=== PATIENT | female | born 1970 | race Caucasian/White ===

== ENCOUNTER 2020-02-21 11:10 | Emergency (ER) | payer MEDICAID, SELFPAY ==
[2020-02-21 11:38] VITALS: BP 123/81; PULSE 83; RESP 16; TEMP 36.5; O2SAT 95; BMI 25.7
--- NOTE | 2020-02-21 12:17 | CT_ITS ---
WS: [id number] CT ABDOMEN AND PELVIS WITH CONTRAST HISTORY: abd pain, mid abdominal pain. TECHNIQUE: Imaging performed of the abdomen and pelvis with IV contrast. Single phase imaging of the abdomen. Coronal and sagittal reformats are submitted. All CT scans at [facility] use at least one of these dose optimization techniques: automated exposure control; mA and/or kV adjustment per patient size (includes targeted exams where dose is matched to clinical indication); or iterativ e reconstruction. IV CONTRAST: Omnipaque 300; 95 mL IV. Oral contrast: No DLP: 655.36 mGy.cm COMPARISON: 04/05/2017 Lower thorax: Lung bases are clear. Heart is normal size. No hiatal hernia. Liver/biliary system: Normal size with no intrahepatic dilatation. Gallbladder: Prior cholecystectomy. Pancreas: Normal. Spleen: Normal. Adrenal glands: Normal. Right kidney: Normal. Left kidney: Normal. Aorta: Mild atherosclerosis with no aneurysm. Lymphadenopathy: None. Free fluid: None. GI tract: Moderate diffuse fecal retention. There are also numerous scattered diverticula throughout the colon. The appendix is not identified but there is no evidence for acute appendicitis. Abdominal wall: Postsurgical changes of hernia repair on the anterior abdominal wall. No abscess or a bnormal collection. Pelvis: Minimally distended urinary bladder. Prior hysterectomy. Prior tubal ligation. No adenopathy. Bones: Unremarkable. CT/CT abdomen pelvis w con* [id number] IMPRESSION: 1. No acute abdominal or pelvic abnormalities. 2. Moderate diffuse constipation. 3. Post surgical repair of the anterior abdominal wall with no complication. 4. Prior cholecystectomy and hysterectomy. 5. Scattered diverticula without acute diverticulitis.
[2020-02-21] MEDS: iohexol 300 mg/mL 100 mL Btl IV (12:37)
[2020-02-21 12:39] LABS: Basophils # 0.1 10^3/uL (0.0-0.1); Basophils % 1.3 %; Eosinophils # 0.2 10^3/uL (0.0-0.8); Eosinophils % 2.1 %; Hematocrit 41.3 % (37.0-47.0); Hemoglobin 13.7 g/dL (11.5-15.3); Lymphocytes # 2.4 10^3/uL (0.8-4.8); Lymphocytes % 32.7 %; Mean Corpuscular HGB Conc 33.2 g/dL (30.0-36.0); Mean Corpuscular Hemoglobin 31.1 pg (28.0-34.0); Mean Corpuscular Volume 93.9 fL (81-99); Mean Platelet Volume 9.5 fL (7.4-10.4); Monocytes # 0.4 10^3/uL (0.2-0.9); Monocytes % 5.8 %; Neutrophils # 4.29 10^3/uL (1.8-7.7); Neutrophils % 57.6 %; Nucleated Red Blood Cells % 0 %; Platelet Count 358 10^3/cmm (130-400); White Blood Count 7.5 10^3/uL (4.0-10.0)
[2020-02-21 13:01] VITALS: RESP 14
[2020-02-21] MEDS: sodium chloride 0.9% 1,000 ML 999 ML IV (13:01)
[2020-02-21] MEDS: ondansetron 2 mg/ML SDV 2 mL 4 MG IVP (13:01)
[2020-02-21] MEDS: morphine 4 mg/mL SDV 1 mL IVP (13:01)
[2020-02-21 13:03] LABS: Add Urine Microscopic? NO
[2020-02-21 13:07] LABS: Alanine Aminotransferase 17 U/L (0-33); Albumin Level 4.3 g/dL (3.5-5.2); Alkaline Phosphatase 105 IU/L (35-105); Anion Gap 11.8 (5-19); Aspartate Amino Transferase 26 U/L (0-32); Blood Urea Nitrogen 10 mg/dL (6-20); Carbon Dioxide 31 mmol/L (22-29); Chloride 101 mmol/L (98-107); Creatinine Clr Calc Pharmacy 79.7348; Glomerular Filtration Rate 75.9 mL/min (90-130); Glucose 125 mg/dL (65-115); Lipase 35 U/L (13-60); Osmolality Calculated 291 mOsm/kg (285-295); Potassium 3.8 mmol/L (3.5-5.1); Sodium 140 mmol/L (136-145); Total Bilirubin 0.3 mg/dL (0.15-1.2); Total Protein 7.3 g/dL (6.6-8.7)
[2020-02-21 13:11] LABS: HCG Qualitative Urine. Negative (Negative)
[2020-02-21 13:13] LABS: Bilirubin Urine Neg (Negative); Blood Urine Neg (Negative); Glucose Urine UA Norm (Normal); Ketones Urine Negative (Negative); Leukocyte Esterase Urine Negative (Negative); Nitrate Urine Negative (Negative); Protein Urine Neg (Negative); Sulfosalicylic Acid Urine Negative (Negative); Urine Appearance Clear (CLEAR); Urine Color Yellow (Yellow); Urobilinogen Urine Norm (Negative); pH Urine 8 (5-7)
--- NOTE | 2020-02-21 14:07 | W.ED.ABDPA2 ---
HPI - Abdominal Pain General: Chief Complaint: Abdominal Pain Stated Complaint: abdominal pain, nausea Time Seen by Provider: 02/21/20 11:45 History of Present Illness: HPI narrative: 49-year-old presents to the emergency room with 2 to 3 days of abdominal pain. She reports dyspareunia a week ago. She has had slight nausea but no vomiting or diarrhea she has been constipated. She denies any hematochezia melena hematemesis cough comes no dysuria urgency or frequency. She does get this intermittently MD elicited complaint: abdominal pain Pertinent past history: constipation Onset (ago): day(s) Pain Consistency: intermittent Location: Diffuse Severity: moderate Quality: cramping Radiation: none Migration to: no migration Exacerbating factors: nothing Relieving factors: nothing Associated Symptoms: Reports change in bowel habits, constipation, GI cramping, nausea and poor appetite; Denies anorexia, belching, bloating, change in stool character, chills, coffee ground emesis, diarrhea, dyspepsia, dysuria, excessive flatus, fever(s), heartburn, hematochezia, hematuria, hematemesis, fecal incontinence, loose stools, melena, syncope and vomiting Review of Systems Const: Denies: fever(s) or chills Card: Denies: syncope Resp: Denies: dyspnea, productive cough or non-productive cough GI: Reports: nausea, constipation, GI cramping and change in bowel habits; Denies: vomiting, hematemesis, coffee ground emesis, heartburn, diarrhea, bloating, belching, excessive flatus, fecal incontinence, change in stool character, hematochezia or melena : Denies: dysuria or hematuria Skin/Breast: Denies: rash or pruritus PFSH ED PFSH: Social History Smoking and tobacco status: never smoked Alcohol intake: never Physical Exam Const: COMMON NORMALS: no acute distress GENERAL APPEARANCE: cooperative and comfortable HENMT: COMMON NORMALS: normocephalic, atraumatic and hearing grossly normal bilaterally HEAD & SCALP: normocephalic and atraumatic Neck/C-Spine: COMMON NORMALS: no JVD Resp: COMMON NORMALS: normal respiratory effort, No retractions, No use of accessory muscles and clear to auscultation bilaterally AUSCULTATION: clear to auscultation bilaterally Cardio: COMMON NORMALS: no JVD, regular rate, regular rhythm and No murmurs present (Cardio) RATE: regular rate RHYTHM: regular rhythm GI: COMMON NORMALS: Soft to palpation and No hepatosplenomegaly present AUSCULTATION: Yes normoactive bowel sounds PALPATION: Yes Soft to palpation, No Tenderness to palpation present (GI), No Guarding due to palpation present (GI) and Yes No hepatosplenomegaly present Extremity: COMMON NORMALS: normal to inspection, capillary refill normal, no clubbing, cyanosis or edema, no calf tenderness and no pedal edema Skin: COMMON NORMALS: no rashes or lesions noted GENERAL SKIN EXAM: no rashes or lesions noted Course Vital Signs: Vital signs: Vital Signs Temperature 97.7 F 02/21/20 11:38 Pulse Rate 83 02/21/20 14:19 Respiratory Rate 18 02/21/20 14:19 Blood Pressure 120/83 02/21/20 14:19 Pulse Oximetry 96 02/21/20 14:19 MDM - Abdominal Pain MDM Narrative: Medical decision making narrative: Labs unremarkable. CT shows diffuse retention of stool otherwise no acute findings discharge patient home use mag citrate as needed recommend adding something such as Tanja-Colace or MiraLAX to prevent constipation in the future. Lab Data: Labs: Lab Results 02/21/20 02/21/20 02/21/20 Range/Units 12:30 12:30 12:55 WBC 7.5 (4.0-10.0) 10^3/ uL RBC 4.40 (4.1-5.3) 10^6/u L Hgb 13.7 (11.5-15.3) g/dL Hct 41.3 (37.0-47.0) % MCV 93.9 (81-99) fL MCH 31.1 (28.0-34.0) pg MCHC 33.2 (30.0-36.0) g/dL RDW 12.0 L (12.1-15.1) % Plt Count 358 (130-400) 10^3/c mm MPV 9.5 (7.4-10.4) fL Neut % (Auto) 57.6 % Lymph % (Auto) 32.7 % [place] % (Auto) 5.8 % Eos % (Auto) 2.1 % Baso % (Auto) 1.3 % Neut # (Auto) 4.29 (1.8-7.7) 10^3/u L Lymph # (Auto) 2.4 (0.8-4.8) 10^3/u L [place] # (Auto) 0.4 (0.2-0.9) 10^3/u L Eos # (Auto) 0.2 (0.0-0.8) 10^3/u L Baso # (Auto) 0.1 (0.0-0.1) 10^3/u L Nucleated RBC % (a uto) 0 % Nucleated RBCs # 0.0 /100WBC Sodium 140 (136-145) mmol/L Potassium 3.8 (3.5-5.1) mmol/L Chloride 101 (98-107) mmol/L Carbon Dioxide 31 H (22-29) mmol/L Anion Gap 11.8 (5-19) BUN 10 (6-20) mg/dL Creatinine 0.8 (0.5-0.9) mg/dL GFR Calculation 75.9 L (90-130) mL/min Glucose 125 H (65-115) mg/dL Calculated Osmolal ity 291 (285-295) mOsm/k g Calcium 10.0 (8.5-10.5) mg/dL Total Bilirubin 0.3 (0.15-1.2) mg/dL AST 26 (0-32) U/L ALT 17 (0-33) U/L Alkaline Phosphata se 105 (35-105) IU/L Total Protein 7.3 (6.6-8.7) g/dL Albumin 4.3 (3.5-5.2) g/dL Globulin 3.0 (1.3-4.6) g/dL Lipase 35 (13-60) U/L HCG, Qual Negative (Negative) Urine Color (Yellow) Urine Appearance (CLEAR) Urine pH (5-7) Ur Specific Gravit y (1.005-1.030) Urine Protein (Negative) Urine Glucose (UA) (Normal) Urine Ketones (Negative) Urine Blood (Negative) Urine Nitrate (Negative) Urine Bilirubin (Negative) Prot Sulfosalicyli c Acd (Negative) Urine Urobilinogen (Negative) mg/dL Ur Leukocyte Britney ase (Negative) 02/21/20 Range/Units 12:55 WBC (4.0-10.0) 10^3/ uL RBC (4.1-5.3) 10^6/u L Hgb (11.5-15.3) g/dL Hct (37.0-47.0) % MCV (81-99) fL MCH (28.0-34.0) pg MCHC (30.0-36.0) g/dL RDW (12.1-15.1) % Plt Count (130-400) 10^3/c mm MPV (7.4-10.4) fL Neut % (Auto) % Lymph % (Auto) % [place] % (Auto) % Eos % (Auto) % Baso % (Auto) % Neut # (Auto) (1.8-7.7) 10^3/u L Lymph # (Auto) (0.8-4.8) 10^3/u L [place] # (Auto) (0.2-0.9) 10^3/u L Eos # (Auto) (0.0-0.8) 10^3/u L Baso # (Auto) (0.0-0.1) 10^3/u L Nucleated RBC % (a uto) % Nucleated RBCs # /100WBC Sodium (136-145) mmol/L Potassium (3.5-5.1) mmol/L Chloride (98-107) mmol/L Carbon Dioxide (22-29) mmol/L Anion Gap (5-19) BUN (6-20) mg/dL Creatinine (0.5-0.9) mg/dL GFR Calculation (90-130) mL/min Glucose (65-115) mg/dL Calculated Osmolal ity (285-295) mOsm/k g Calcium (8.5-10.5) mg/dL Total Bilirubin (0.15-1.2) mg/dL AST (0-32) U/L ALT (0-33) U/L Alkaline Phosphata se (35-105) IU/L Total Protein (6.6-8.7) g/dL Albumin (3.5-5.2) g/dL Globulin (1.3-4.6) g/dL Lipase (13-60) U/L HCG, Qual (Negative) Urine Color Yellow (Yellow) Urine Appearance Clear (CLEAR) Urine pH 8 H (5-7) Ur Specific Gravit y 1.010 (1.005-1.030) Urine Protein Neg (Negative) Urine Glucose (UA) Norm (Normal) Urine Ketones Negative (Negative) Urine Blood Neg (Negative) Urine Nitrate Negative (Negative) Urine Bilirubin Neg (Negative) Prot Sulfosalicyli c Acd Negative (Negative) Urine Urobilinogen Norm (Negative) mg/dL Ur Leukocyte Britney ase Negative (Negative) Discharge Plan Discharge Patient Disposition: Home Clinical Impression: Constipation Condition: Stable Prescriptions: New magnesium citrate Solution 150 ml PO BID PRN (Reason: constipation) Qty: 296 RF: 0 Discharge Orders: Discharge Order (Routine); Ordered 02/21/20 Ordered By: Wagner Kasper Referrals: Benita Thomas DO [Family Provider] - Discharge Diet: Usual diet Discharge Activity: Resume usual activity and Increase activity as tolerated Activity Restrictions/Additional Instructions: Follow-up as needed return if worsens Discharge Date/Time: 02/21/20 14:20 Coding Level of Care Code ED Glaze Carrier for Lela Castillo
[2020-02-21 14:19] VITALS: BP 120/83; PULSE 83; RESP 18; O2SAT 96
== END 2020-02-21 14:20 | disposition home or self-care (01) ==
PROVIDERS: Nurse Practitioner Family; Emergency Provider Family Medicine; Family Provider Family Medicine
DX: K59.00 Constipation, unspecified (principal)
CPT/HCPCS: 12345; 74177; 80053; 81003; 81025; 83690; 85025; 96361; 96374; 96375; 99282; 99283; J2270; J2405; J7030; Q9967

== ENCOUNTER → 2021-04-02 12:07 | Outpatient (BNVA) | payer MEDICAID, SELFPAY | PROVIDERS: Family Provider Family Medicine; PCP Family Medicine; Visit Provider Registered Nurse Neonatal Intensive Care | DX: N39.0 Urinary tract infection, site not specified (principal); Z11.3 Encounter for screening for infections with a predominantly sexual mode of transmission | CPT/HCPCS: 81000; 87491; 87591; 87661 ==

== ENCOUNTER 2022-09-12 12:30 | Outpatient (CLI) | payer MEDICAID, SELFPAY ==
--- NOTE | 2022-09-12 13:07 | MM_ITS ---
WS: [id number] BILATERAL 3D TOMOSYNTHESIS DIGITAL SCREENING MAMMOGRAPHY WITH CAD CLINICAL INFORMATION: SCREENING HISTORY: Screening mammogram. No current complaints. COMPARISON: 2016 TECHNIQUE: Bilateral CC and MLO views. FINDINGS: The breasts are composed of heterogeneous fibroglandular density tissue, which can limit the detectio n of small underlying mass lesions. New clustered heterogeneous calcifications 6:00 LEFT breast. Stef mmend spot magnification views. RIGHT breast is unremarkable. MM/[place] [id number] IMPRESSION: Recommend spot magnification views clustered calcifications LEFT br east BI-RADS: 0-Incomplete: Need additional imaging evaluation FOLLOW UP: Need Additional Imaging
== END 2022-09-12 12:31 | disposition home or self-care (01) ==
PROVIDERS: PCP Family Medicine; Visit Provider Nurse Practitioner Family
DX: Z12.31 Encounter for screening mammogram for malignant neoplasm of breast (principal)
CPT/HCPCS: 77063; 77067

== ENCOUNTER 2022-09-20 10:00 | Outpatient (CLI) | payer MEDICAID, SELFPAY ==
--- NOTE | 2022-09-20 10:12 | MM_ITS ---
WS: [id number] LEFT 3D TOMOSYNTHESIS DIGITAL MAMMOGRAPHY WITH CAD CLINICAL INFORMATION: ABNORMALITY OF LEFT BREAST ON SCREENING HISTORY: Additional views COMPARISON: September 12, 2022 TECHNIQUE: 3 views of the left breast were obtained. FINDINGS: The left breast is composed of heterogeneous fibroglandular density tissue, which can limit the detec tion of small underlying mass lesions. Magnification views demonstrate heterogeneous clustered calcif ications 6:00 position LEFT breast mid to posterior depth. These are indeterminate and recommend furt her evaluation with stereotactic guided biopsy. MM/[place] [id number] IMPRESSION: BI-RADS: 4-Suspicious Finding-Biopsy Should Be Considered FOLLOW UP: Stereotactic Biopsy Recommended .
== END 2022-09-20 10:01 | disposition home or self-care (01) ==
LOC: RAD 10:08
PROVIDERS: PCP Family Medicine; Visit Provider Nurse Practitioner Family
DX: R92.8 Other abnormal and inconclusive findings on diagnostic imaging of breast (principal)
CPT/HCPCS: 77061; G0279

== ENCOUNTER 2022-10-02 14:00 | Emergency (ER) | payer MEDICAID, SELFPAY ==
[2022-10-02 14:39] VITALS: BP 111/72; PULSE 114; RESP 14; TEMP 37.6; O2SAT 95; BMI 29.2
[2022-10-02] MEDS: sodium chloride 0.9% 1,000 ML 999 ML IV ×2 (15:17→17:26)
[2022-10-02] MEDS: ondansetron 2 mg/ML SDV 2 mL 4 MG IVP (15:17)
[2022-10-02] MEDS: acetaminophen 500 mg Tablet 1000 MG PO (15:17)
[2022-10-02 15:32] LABS: Basophils # 0.1 10^3/uL (0.0-0.1); Basophils % 0.6 %; Eosinophils % 0.1 %; Hematocrit 44.4 % (37.0-47.0); Hemoglobin 14.7 g/dL (11.5-15.3); Lymphocytes # 1.5 10^3/uL (0.8-4.8); Lymphocytes % 6.9 %; Mean Corpuscular HGB Conc 33.1 g/dL (30.0-36.0); Mean Corpuscular Hemoglobin 30.5 pg (28.0-34.0); Mean Corpuscular Volume 92.1 fl (81-99); Mean Platelet Volume 9.7 fL (7.4-10.4); Monocytes % 4.7 %; Neutrophils # 19.12 10^3/uL (1.8-7.7); Neutrophils % 86.8 %; Nucleated Red Blood Cells % 0 %; Platelet Count 369 10^3/cmm (130-400); Red Blood Count 4.82 10^6/uL (4.1-5.3); Red Cell Distribution Width 12.8 % (12.1-15.1)
--- NOTE | 2022-10-02 15:35 | XRR_ITS ---
PROCEDURE INFORMATION: Exam: XR Chest Exam date and time: 10/02/2022 4:02 PM Age: 51 years old Clinical indication: Fever TECHNIQUE: Imaging protocol: Radiologic exam of the chest. Views: 1 view. COMPARISON: CT chest w con* [id number] 08/03/2018 8:41 AM FINDINGS: Lungs: Lung volumes are decreased. Lung [place] are essentially clear for degree of aeration. Pleural spaces: Unremarkable. No pleural effusion. No pneumothorax. Heart/Mediastinum: Heart appears borderline enlarged but accentuated due to decreased lung volumes and portable technique. Bones/joints: Unremarkable for age. XR/XR chest 1V portable [id number] IMPRESSION: Borderline cardiomegaly. Decreased lung volumes otherwise negative chest.
[2022-10-02 15:40] LABS: Rapid Strep A Test Negative (Negative)
[2022-10-02 15:48] LABS: Add Urine Culture? No; Add Urine Microscopic? YES; Bacteria Urine 1+ /hpf; Bilirubin Urine 1+ (Negative); Blood Urine Neg (Negative); Glucose Urine UA Norm (Normal); Ketones Urine Negative (Negative); Leukocyte Esterase Urine Negative (Negative); Nitrate Urine Negative (Negative); Protein Urine Trace (Negative); Urine Appearance Clear (CLEAR); Urine Color Dark Yellow (Yellow); Urobilinogen Urine Norm (Negative); WBC Urine 0-4 /hpf (0-5); pH Urine 5 (5-7)
[2022-10-02 15:52] LABS: Alanine Aminotransferase 28 U/L (0-33); Albumin Level 4.5 g/dL (3.5-5.2); Alkaline Phosphatase 146 U/L (35-105); Anion Gap 17.6 (5-19); Aspartate Amino Transferase 21 U/L (0-32); Blood Urea Nitrogen 14 mg/dL (6-20); Calcium 9.8 mg/dL (8.5-10.5); Carbon Dioxide 24 mmol/L (22-29); Chloride 99 mmol/L (98-107); Globulin 3.9 g/dL (1.3-4.6); Glomerular Filtration Rate 58.2 mL/min (90-130); Glucose 134 mg/dL (65-115); Lipase 24 U/L (13-60); Osmolality Calculated 286 mOsm/kg (285-295); Potassium 3.6 mmol/L (3.5-5.1); Sodium 137 mmol/L (136-145); Total Bilirubin 0.9 mg/dL (0.15-1.2); Total Protein 8.4 g/dL (6.6-8.7)
--- NOTE | 2022-10-02 15:55 | CTR_ITS ---
PROCEDURE INFORMATION: Exam: CT Abdomen And Pelvis With Contrast Exam date and time: 10/02/2022 4:27 PM Age: 51 years old Clinical indication: Abdominal tenderness and fever; Prior surgery; Surgery date: 6+ months; Surgery type: Hernia; Additional info: Abd pain TECHNIQUE: Imaging protocol: Computed tomography of the abdomen and pelvis with contrast. Radiation optimization: All CT scans at this facility use at least one of these dose optimization techniques: automated exposure control; mA and/or kV adjustment per patient size (includes targeted exams where dose is matched to clinical indication); or iterative reconstruction. Contrast material: OMNI 350; Contrast volume: 100 ml; Contrast route: INTRAVENOUS (IV); REPORTING DATA: Count of CT and Cardiac NM exams in prior 12 months: This patient has received 0 known CTs and 0 known cardiac nuclear medicine studies in the 12 months prior to the current study. COMPARISON: CT abdomen pelvis w con* [id number] 02/21/2020 12:32 PM RADIATION DOSE METRICS: Total DLP (mGy-cm): 660.91 FINDINGS: Lungs: Stable small fat containing left diaphragmatic hernia with adjacent minor atelectatic changes. Additional scattered linear atelectasis and hypoventilatory changes at the lung bases progressed from previous exam. Liver: Liver is mildly enlarged with fatty infiltration. Gallbladder and bile ducts: Gallbladder has been removed. Bile ducts are not appreciably dilated. Pancreas: Unremarkable. Main pancreatic duct is not significantly dilated. Spleen: Normal. No splenomegaly. Adrenal glands: Normal. No mass. Kidneys and ureters: Normal. No hydronephrosis. Stomach and bowel: There is a segment of colon extending from the a patent flexure to the midportion of the transverse colon that is collapsed, unopacified limiting assessment but appears mildly thickened with engorgement of adjacent pericolonic vasculature concerning for mild segmental colitis. There are scattered diverticuli throughout the large bowel without evidence of acute diverticulitis. Appendix: No evidence of appendicitis. Intraperitoneal space: Unremarkable. No free air. No significant fluid collection. Vasculature: Unremarkable. No abdominal aortic aneurysm. Lymph nodes: Unremarkable. No enlarged lymph nodes. Urinary bladder: Unremarkable as visualized. Reproductive: Uterus has been removed. Bones/joints: Unremarkable. No acute fracture. Soft tissues: Unremarkable. CT/CT abdomen pelvis w con* [id number] IMPRESSION: 1. Findings suspicious for mild segmental colitis involving portion of the right colon as discussed above. 2. Additional chronic findings as above.
[2022-10-02 16:10] LABS: SARS Covid-2 Antigen negative (Negative)
[2022-10-02] MEDS: iohexol 350 mg/mL 500 mL Btl (per mL) IV (16:33)
--- NOTE | 2022-10-02 16:57 | W.ED.NAVMDI ---
HPI - Nausea/Vomiting/Diarrhea General: Chief complaint: Nausea/Vomiting/Diarrhea Stated complaint: Sore throat, Cold chills, Time Seen by Provider: 10/02/22 14:07 Source: patient Mode of arrival: ambulatory Limitations: no limitations History of Present Illness: 51-year-old female states that since last night she had chills body aches subjective fevers along with a sore throat. States she also had some abdominal cramping she rates a 4 out of 10. Mild cough. She denies any worsening improving factors no vomiting no diarrhea denies any headache. Associated nausea: No Associated symtoms: Denies chest pain, dysuria or nausea Review of Systems Const: Reports: fever(s) and chills; Denies: body aches or change in appetite Eyes: Denies: blurry vision or eye discomfort ENMT: Reports: throat pain; Denies: dental pain Card: Denies: chest pain Resp: Denies: dyspnea GI: Reports: abdominal pain; Denies: nausea, vomiting or diarrhea : Denies: dysuria Musc: Denies: neck pain or back pain Skin/Breast: Denies: rash PFSH ED PFSH: Social History Smoking and tobacco status: never smoked Alcohol intake: never Substance/Drug Use: never Physical Exam Const: COMMON NORMALS: no acute distress and patient oriented x3 HENMT: COMMON NORMALS: normocephalic and atraumatic HEAD & SCALP: normocephalic and atraumatic THROAT: posterior oropharynx normal Eye: COMMON NORMALS: EOMs intact bilaterally and conjunctivae normal CONJUNCTIVA: Yes conjunctivae normal Neck/C-Spine: COMMON NORMALS: supple Chest: COMMONS NORMALS: normal inspection of the chest Resp: COMMON NORMALS: normal respiratory effort and No retractions Cardio: COMMON NORMALS: regular rhythm RATE: tachycardic RHYTHM: regular rhythm GI: COMMON NORMALS: Normal to inspection, nondistended, normoactive bowel sounds present and Soft to palpation PALPATION: Yes Soft to palpation Extremity: COMMON NORMALS: normal to inspection Neuro: COMMON NORMALS: patient oriented x3 Psych: COMMON NORMALS: mental status grossly normal Skin: COMMON NORMALS: no rashes or lesions noted GENERAL SKIN EXAM: no rashes or lesions noted Course Vital Signs: Vital signs: Vital Signs Temperature 99.7 F H 10/02/22 14:39 Pulse Rate 114 H 10/02/22 14:39 Respiratory Rate 14 10/02/22 14:39 Blood Pressure 111/72 10/02/22 14:39 Pulse Oximetry 95 10/02/22 14:39 Oxygen Delivery Me thod Room Air 10/02/22 14:39 MDM - Nausea/Vomiting/Diarrhea Medical Decision Making Patient presents with fever along with some slight abdominal pain she feels much improved here after IV fluids she is wanting to go home CT did show a slight colitis she does have an elevated white count. Heart rate here is improved after fluids we will give her Cipro Flagyl prescription for home along with Zofran CT showed no other findings she stable for discharge. Lab Data 10/02/22 15:24 10/02/22 15:24 Radiology Impressions Chest X-Ray 10/02/22 15:35 IMPRESSION: Borderline cardiomegaly. Decreased lung volumes otherwise negative chest. Abdomen/Pelvis CT 10/02/22 15:55 IMPRESSION: 1. Findings suspicious for mild segmental colitis involving portion of the right colon as discussed above. 2. Additional chronic findings as above. Laboratory Results WBC 22.0 10^3/uL (4.0-10.0) H 10/02/22 15:24 RBC 4.82 10^6/uL (4.1-5.3) 10/02/22 15:24 Hgb 14.7 g/dL (11.5-15.3) 10/02/22 15:24 Hct 44.4 % (37.0-47.0) 10/02/22 15:24 MCV 92.1 fl (81-99) 10/02/22 15:24 MCH 30.5 pg (28.0-34.0) 10/02/22 15:24 MCHC 33.1 g/dL (30.0-36.0) 10/02/22 15:24 RDW 12.8 % (12.1-15.1) 10/02/22 15:24 Plt Count 369 10^3/cmm (130-400) 10/02/22 15:24 MPV 9.7 fL (7.4-10.4) 10/02/22 15:24 Neut % (Auto) 86.8 % 10/02/22 15:24 Lymph % (Auto) 6.9 % 10/02/22 15:24 [place] % (Auto) 4.7 % 10/02/22 15:24 Eos % (Auto) 0.1 % 10/02/22 15:24 Baso % (Auto) 0.6 % 10/02/22 15:24 Neut # (Auto) 19.12 10^3/uL (1.8-7.7) H 10/02/22 15:24 Lymph # (Auto) 1.5 10^3/uL (0.8-4.8) 10/02/22 15:24 [place] # (Auto) 1.0 10^3/uL (0.2-0.9) H 10/02/22 15:24 Eos # (Auto) 0.0 10^3/uL (0.0-0.8) 10/02/22 15:24 Baso # (Auto) 0.1 10^3/uL (0.0-0.1) 10/02/22 15:24 Nucleated RBC % (auto) 0 % 10/02/22 15:24 Nucleated RBCs # 0.0 /100WBC 10/02/22 15:24 Sodium 137 mmol/L (136-145) 10/02/22 15:24 Potassium 3.6 mmol/L (3.5-5.1) 10/02/22 15:24 Chloride 99 mmol/L (98-107) 10/02/22 15:24 Carbon Dioxide 24 mmol/L (22-29) 10/02/22 15:24 Anion Gap 17.6 (5-19) 10/02/22 15:24 BUN 14 mg/dL (6-20) 10/02/22 15:24 Creatinine 1.0 mg/dL (0.5-0.9) H 10/02/22 15:24 GFR Calculation 58.2 mL/min (90-130) L 10/02/22 15:24 Glucose 134 mg/dL (65-115) H 10/02/22 15:24 Calculated Osmolality 286 mOsm/kg (285-295) 10/02/22 15:24 Calcium 9.8 mg/dL (8.5-10.5) 10/02/22 15:24 Total Bilirubin 0.9 mg/dL (0.15-1.2) 10/02/22 15:24 AST 21 U/L (0-32) 10/02/22 15:24 ALT 28 U/L (0-33) 10/02/22 15:24 Alkaline Phosphatase 146 U/L (35-105) H 10/02/22 15:24 Total Protein 8.4 g/dL (6.6-8.7) 10/02/22 15:24 Albumin 4.5 g/dL (3.5-5.2) 10/02/22 15:24 Globulin 3.9 g/dL (1.3-4.6) 10/02/22 15:24 Lipase 24 U/L (13-60) 10/02/22 15:24 Urine Color Dark yellow (Yellow) 10/02/22 15:05 Urine Appearance Clear (CLEAR) 10/02/22 15:05 Urine pH 5 (5-7) 10/02/22 15:05 Ur Specific [place] 1.020 (1.005-1.030) 10/02/22 15:05 Urine Protein Trace (Negative) 10/02/22 15:05 Urine Glucose (UA) Norm (Normal) 10/02/22 15:05 Urine Ketones Negative (Negative) 10/02/22 15:05 Urine Blood Neg (Negative) 10/02/22 15:05 Urine Nitrate Negative (Negative) 10/02/22 15:05 Urine Bilirubin 1+ (Negative) H 10/02/22 15:05 Urine Urobilinogen Norm mg/dL (Negative) 10/02/22 15:05 Ur Leukocyte Esterase Negative (Negative) 10/02/22 15:05 Urine RBC None /hpf (0-2) 10/02/22 15:05 Urine WBC 0-4 /hpf (0-5) H 10/02/22 15:05 Ur Squamous Epith Cells 10-15 /hpf (0-5) H 10/02/22 15:05 Amorphous Sediment Not Reportable 10/02/22 15:05 Urine Bacteria 1+ /hpf (NONE) H 10/02/22 15:05 SARS-CoV-2 Ag (Rapid) negative (Negative) 10/02/22 15:24 Group A Strep Rapid Negative (Negative) 10/02/22 15:24 Discharge Plan Discharge Patient Disposition: Home Clinical Impression: Colitis Condition: Stable Prescriptions: New metronidazole 500 mg tablet 500 mg PO Q8H 7 Days Qty: 21 0RF Cipro 500 mg tablet 500 mg PO BID Qty: 14 0RF No Action unable to obtain PO nitrofurantoin monohyd/m-cryst [Macrobid] 100 mg capsule 100 mg PO BID 5 Days Qty: 10 0RF Rx Instructions: must administer with a meal/food Discharge Orders: Discharge ED (Routine); Ordered 10/02/22 Ordered By: Anneliese Banuelos Referrals: Benita Thomas DO [Primary Care Provider] - 1-3 days Discharge Diet: Advance as tolerated Discharge Activity: Resume usual activity Patient Instructions: Colitis (ED) Coding Level of Care Code ED Prosthetic Technician for Lela Castillo
[2022-10-02] MEDS: metroNIDAZOLE 500 MG Tablet PO (17:25)
[2022-10-02] MEDS: ciprofloxacin 500 mg Tablet PO (17:25)
== END 2022-10-02 18:22 | disposition home or self-care (01) ==
PROVIDERS: Emergency Provider Emergency Medicine; PCP Family Medicine
DX: K52.9 Noninfective gastroenteritis and colitis, unspecified (principal); Z20.822 Contact with and (suspected) exposure to COVID-19
CPT/HCPCS: 71045; 74177; 80053; 81001; 83605; 83690; 85025; 87081; 87426; 87880; 96361; 96374; 99285; J2405; J7030; Q9967

== ENCOUNTER 2023-08-14 11:31 | Emergency (ER) | payer MEDICAID, SELFPAY ==
[2023-08-14 11:36] VITALS: BP 132/87; PULSE 100; RESP 16; TEMP 36.6; O2SAT 97; BMI 23.1
--- NOTE | 2023-08-14 11:51 | W.ED.SKABFB ---
HPI - Skin/Abscess/Foreign Bdy General: Chief complaint: Skin/Abscess/Foreign Body Stated complaint: tick bit, redness, unable to have bowel movement Time Seen by Provider: 08/14/23 11:40 Source: patient Mode of arrival: ambulatory Limitations: no limitations History of Present Illness: Patient is a 52-year-old female presents to ED today with two separate complaints. Yesterday she began noticing some pruritus around her umbilicus. She states she inspected the area and noticed redness and an attached tick. She states she pulled the tick off and flushed it down the toilet. Redness is worse today prompting her evaluation. No systemic symptoms. She also has a complaint of constipation. Reports longstanding history of constipation that she normally treats with OTC laxatives and stool softeners. Still passing gas. No vomiting or fevers. MD complaint: insect bite/sting and other (constipation) Onset (ago): day(s) Tetanus up to date: yes Location: generalized (abdomen) Severity: mild Relieving factors: none Exacerbating factors: none Context: witnessed insect bite (tick) Associated symptoms: Deny chills, fever(s), nausea or vomiting Treatments prior to arrival: other (otc laxatives) Review of Systems Const: Denies: fever(s), chills, body aches, fatigue or malaise Card: Denies: chest pain Resp: Denies: dyspnea GI: Reports: constipation and bloating; Denies: abdominal pain, nausea, vomiting, hematemesis, diarrhea, hematochezia or melena : Denies: flank pain, dysuria or hematuria Musc: Denies: neck pain, back pain, extremity pain or joint pain Skin/Breast: Reports: other (redness/tick bite near umbilicus); Denies: rash Neuro: Denies: headache(s), numbness in extremities, weakness in extremities, sensory changes or dizziness PFS ED PFSH: Social History Smoking and tobacco/nicotine status: never used tobacco/nicotine Alcohol intake: never Substance/Drug Use: never Physical Exam Const: COMMON NORMALS: no acute distress, patient oriented x3, no limitations, alert and well nourished Resp: COMMON NORMALS: normal respiratory effort and clear to auscultation bilaterally AUSCULTATION: clear to auscultation bilaterally Cardio: COMMON NORMALS: regular rate and regular rhythm RATE: regular rate RHYTHM: regular rhythm GI: COMMON NORMALS: Soft to palpation INSPECTION: Yes scar and Yes other (redness surrounding umbilicus) AUSCULTATION: Yes normoactive bowel sounds PALPATION: Yes Soft to palpation, No Tenderness to palpation present (GI), No Guarding due to palpation present (GI) and No Rigid due to palpation : COMMON NORMALS: Yes no CVA tenderness BLADDER/KIDNEY EXAM: Yes no CVA tenderness Back/Pelvis: COMMON NORMALS: no CVA tenderness Extremity: GENERAL: Yes normal exam except as noted Neuro: MONIKA COMA SCALE: document GCS findings [place] coma scale eye opening: Spontaneous [place] coma scale verbal response: Orientated [place] coma scale motor response: Obey commands Monika coma scale total score: 15 COMMON NORMALS: patient oriented x3, moves all extremities, no focal motor deficits and no sensory deficits noted SENSORIUM/ORIENTATION: Yes alert Skin: NARRATIVE SKIN EXAM: see above Course Vital Signs: Vital signs: Vital Signs Temperature 97.8 F 08/14/23 11:36 Pulse Rate 100 08/14/23 11:36 Respiratory Rate 16 08/14/23 11:36 Blood Pressure 132/87 08/14/23 11:36 Pulse Oximetry 97 08/14/23 11:36 Oxygen Delivery Me thod Room Air 08/14/23 11:36 MDM - Skin/Abscess/Foreign Bdy Medicial Decision Making No signs of obstruction on patient's abdominal XR. She does have quite a bit of erythema surrounding her umbilicus from recent tick bite. Will go ahead and run a tick panel as patient is concerned. Will place her on Doxycycline. Return ED precautions given. Medical Records I reviewed the patient's medical records. XR interpretation done by ED provider, pending radiology final review Discharge Plan Discharge Patient Disposition: Home Clinical Impression: Tick bite of abdomen Qualifiers: Encounter type: initial encounter Qualified Code(s): S30.861A - Insect bite (nonvenomous) of abdominal wall, initial encounter Constipation Qualifiers: Constipation type: unspecified constipation type Qualified Code(s): K59.00 - Constipation, unspecified Condition: Stable Prescriptions: New doxycycline monohydrate 100 mg capsule 100 mg PO Q12H 10 Days Qty: 20 0RF No Action cetirizine 10 mg tablet 10 mg PO DAILY pravastatin 40 mg tablet 40 mg PO QPM ibuprofen 800 mg tablet 800 mg PO Q6H PRN (Reason: Moderate Pain (Scale Score 5-6)) ondansetron HCl 4 mg tablet 4 mg PO Q8H PRN (Reason: Nausea) omeprazole 40 mg capsule,delayed release(DR/EC) 40 mg PO DAILY docusate sodium 100 mg capsule 100 mg PO BID PRN (Reason: Constipation) Tums 500 500 mg calcium (1,250 mg) Tablet,Chewable 500 mg PO TID PRN (Reason: Acid Reflux) acai tabor extract 500 mg Capsule 500 mg PO DAILY Discharge Orders: Discharge ED (Routine); Ordered 08/14/23 Ordered By: Rosalind Cullen Referrals: Benita Thomas DO [Primary Care Provider] - Patient Instructions: Constipation (DC), Tick Bite (ED) Activity Restrictions/Additional Instructions: Antibiotics for your tick bite have been sent to [facility] pharmacy. Monitor for worsening redness, drainage, increased pain, or fevers. Tick panel collected and pending. You will be contacted with any positive results. As we discussed I would recommend attempting [id number] enema/suppository to help with your constipation in addition to MiraLAX/Colace/Senokot/increasing fiber content. Coding Level of Care Code ED Elevator Repairer Helper for Lela Castillo
--- NOTE | 2023-08-14 12:14 | XRR_ITS ---
PROCEDURE INFORMATION: Exam: XR Abdomen Exam date and time: 08/14/2023 12:42 PM Age: 52 years old Clinical indication: Other: Constipation, upright/supine; Prior surgery; Surgery date: 6+ months; Surgery type: Herniasex TECHNIQUE: Imaging protocol: Radiologic exam of the abdomen. Views: 2 Views. Upright and supine views. COMPARISON: CT abdomen pelvis w con* [id number] 10/02/2022 4:27 PM FINDINGS: Tubes, catheters and devices: Surgical clips project over the right upper quadrant. Gastrointestinal tract: Moderate colonic stool burden. Overall nonobstructive bowel gas pattern. Intraperitoneal space: No distinct evidence of extraluminal free air under the diaphragm. Bones/joints: No acute osseous findings. XR/XR abdomen min 2V [id number] IMPRESSION: Moderate colonic stool burden.
[2023-08-14 13:39] VITALS: BP 118/80; PULSE 92; O2SAT 92
[2023-08-15 12:14] LABS: Lyme AB Screen <0.90 index
[2023-08-17 16:58] LABS: RMSF IGG NOT DETECTED; RMSF IGM NOT DETECTED
[2023-08-19 21:25] LABS: E. Chaffeensis AB IGG <1:64; E. Chaffeensis AB IGM <1:20
== END 2023-08-14 13:40 | disposition home or self-care (01) ==
PROVIDERS: Emergency Provider Physician Assistant; PCP Family Medicine
DX: S30.861A Insect bite (nonvenomous) of abdominal wall, initial encounter (principal); K59.00 Constipation, unspecified; W57.XXXA Bitten or stung by nonvenomous insect and other nonvenomous arthropods, initial encounter
CPT/HCPCS: 74019; 86618; 86666; 86757; 99284

== ENCOUNTER 2023-10-18 17:05 | Emergency (ER) | payer MEDICAID, SELFPAY ==
[2023-10-18 17:06] VITALS: BP 129/87; PULSE 94; RESP 14; TEMP 36.7; O2SAT 98
--- NOTE | 2023-10-18 17:27 | CTR_ITS ---
PROCEDURE INFORMATION: Exam: CT Abdomen And Pelvis With Contrast Exam date and time: 10/18/2023 5:49 PM Age: 52 years old Clinical indication: Constipation and nausea; Abdominal pain; Generalized; Patient HX: PT reports abd cramping, nauseated, states she is constipated. Last bm sund; Additional info: Abd pain TECHNIQUE: Imaging protocol: Computed tomography of the abdomen and pelvis with contrast. Axial, coronal and sagittal reformatted images were created and reviewed. Radiation optimization: All CT scans at this facility use at least one of these dose optimization techniques: automated exposure control; mA and/or kV adjustment per patient size (includes targeted exams where dose is matched to clinical indication); or iterative reconstruction. Contrast material: OMNI 350; Contrast volume: 100 ml; Contrast route: INTRAVENOUS (IV); COMPARISON: CT abdomen pelvis w con* [id number] 10/02/2022 4:27 PM RADIATION DOSE METRICS: Total DLP (mGy-cm): 714.67 FINDINGS: Lungs: Dependent linear stranding and groundglass, likely due to atelectasis and/or scarring. Liver: Diffuse hepatic steatosis. Gallbladder and bile ducts: Status post cholecystectomy. No biliary ductal dilatation. Pancreas: Unremarkable. Spleen: Unremarkable. Adrenal glands: Normal. No mass. Kidneys and ureters: No mass. No radiodense calculi. No hydronephrosis. Stomach and bowel: Moderate amount of retained stool in the colon. Mild left colonic wall thickening with associated mural and pericolonic edema. No obstruction. No pneumatosis. Appendix: Normal. Intraperitoneal space: No free fluid. No organized fluid collection. No free air. Vasculature: Mild atherosclerotic disease. No aneurysm or dissection. Lymph nodes: No pathologically enlarged lymph nodes. Urinary bladder: Unremarkable as visualized. Reproductive: Status post hysterectomy. Bones/joints: No acute osseous abnormality. Soft tissues: Unremarkable. CT/CT abdomen pelvis w con* [id number] IMPRESSION: 1. Nonspecific left-sided colitis, as described above. Query stercoral colitis. 2. Additional findings, as above.
--- NOTE | 2023-10-18 17:28 | ED_ITS ---
HPI - Abdominal Pain 2 General: Chief Complaint: Abdominal Pain Stated Complaint: constipation, stomach pain, Time Seen by Provider: 10/18/23 17:22 History of Present Illness: 52-year-old female comes in today with a bdominal pain with nausea and vomiting since Monday. Patient reports her last bowel movement was Monday. Patient believes her symptoms are secondary to constipation. Patient has a history of hysterectomy and hernia repair. Patient's been on medication for urinary tract infection. Patient's routine medications includes medication for allergies. Patient appears nontoxic. Patient appears in mild pain. Patient reports nausea. Associated Symptoms: Reports constipation, nausea and vomiting Review of Systems 2 General: Reports: 10 or more systems reviewed and unremarkable except in HPI and below GI: Reports: abdominal pain, nausea, vomiting and constipation PFSH ED 2 PFSH: Social History Smoking and tobacco/nicotine status: never used tobacco/nicotine Alcohol intake: never Substance/Drug Use: never Physical Exam 2 Const: COMMON NORMALS: alert HENMT: COMMON NORMALS: normocephalic HEAD & SCALP: normocephalic Neck/C-Spine: COMMON NORMALS: full ROM Resp: COMMON NORMALS: normal respiratory effort and clear to auscultation bilaterally AUSCULTATION: clear to auscultation bilaterally Cardio: COMMON NORMALS: regular rate and regular rhythm RATE: regular rate RHYTHM: regular rhythm GI: COMMON NORMALS: Soft to palpation AUSCULTATION: Yes Hypoactive bowel sounds present PALPATION: Yes Soft to palpation and Yes Tenderness to palpation present (GI) : COMMON NORMALS: Yes no CVA tenderness BLADDER/KIDNEY EXAM: Yes no CVA tenderness Back/Pelvis: COMMON NORMALS: no CVA tenderness and thoracic and lumbar spine normal to inspection Extremity: COMMON NORMALS: normal to inspection Neuro: SENSORIUM/ORIENTATION: Yes alert Skin: COMMON NORMALS: turgor normal GENERAL SKIN EXAM: turgor normal Course 2 Vital Signs: Vital signs: Vital Signs Temperature 98.1 F 10/18/23 17:06 Pulse Rate 90 10/18/23 18:23 Respiratory Rate 16 10/18/23 18:23 Blood Pressure 125/81 10/18/23 18:23 Pulse Oximetry 93 10/18/23 18:23 Oxygen Delivery Me thod Room Air 10/18/23 17:06 MDM - Abdominal Pain Medical Decision Making 52-year-old female comes in today for complaints of generalized abdominal pain, constipation, and nausea with some vomiting. Patient appears nontoxic. Patient appears no acute distress. Respirations are even. Abdomen soft with generalized tenderness to palpation. No CVA tenderness. Patient moves all extremities well. Differential diagnosis includes not limited to constipation, bowel obstruction, gastroenteritis, Diverticulitis, pancreatitis. CBC and CMP was unremarkable with a normal white blood cell count, and mild increase in creatinine of 1.0. CT of the abdomen pelvis noted a nonspecific left-sided colitis with the differential being stercoral colitis. I reviewed this with Dr. Salgado, attending ER physician, who agreed with plan for enemas and mag citrate for resolution of constipation. Patient was nontoxic and did not note any signs of severe illness. Patient was agreeable to plan. 2224, patient had small results of stool after milk of molasses enemas. Patient was ordered a a magnesium citrate 10 ounce bottle and recommended to drink it when she got home. Patient was recommended repeat given 12 hours if needed. Recommended plenty of fluids and follow-up with primary care. Lab Data 10/18/23 17:30 10/18/23 17:30 Labs/Radiology: Radiology Impressions Abdomen/Pelvis CT 10/18/23 17:27 IMPRESSION: 1. Nonspecific left-sided colitis, as described above. Query stercoral colitis. 2. Additional findings, as above. Laboratory Results WBC 10.25 10^3/uL (3.29-11.43) 10/18/23 17:30 RBC 5.06 10^6/uL (3.85-5.65) 10/18/23 17:30 Hgb 15.30 g/dL (11.27-16.99) 10/18/23 17:30 Hct 45.2 % (36-47) 10/18/23 17:30 MCV 89.3 fl (85-98) 10/18/23 17:30 MCH 30.2 pg (27-33) 10/18/23 17:30 MCHC 33.8 g/dL (30-55) 10/18/23 17:30 RDW 12.5 % (12.1-15.1) 10/18/23 17:30 Plt Count 364 10^3/cmm (157-399) 10/18/23 17:30 MPV 9.8 fL (7.4-10.4) 10/18/23 17:30 Neut % (Auto) 77.6 % 10/18/23 17:30 Lymph % (Auto) 15.1 % 10/18/23 17:30 [place] % (Auto) 5.6 % 10/18/23 17:30 Eos % (Auto) 0.5 % 10/18/23 17:30 Baso % (Auto) 0.9 % 10/18/23 17:30 Neut # (Auto) 7.96 10^3/uL (1.8-7.7) H 10/18/23 17:30 Lymph # (Auto) 1.6 10^3/uL (0.8-4.8) 10/18/23 17:30 [place] # (Auto) 0.6 10^3/uL (0.2-0.9) 10/18/23 17:30 Eos # (Auto) 0.1 10^3/uL (0.0-0.8) 10/18/23 17:30 Baso # (Auto) 0.1 10^3/uL (0.0-0.1) 10/18/23 17:30 Nucleated RBC % (auto) 0 % 10/18/23 17: Nucleated RBCs # 0.0 /100WBC 10/18/23 17:30 Sodium 139 mmol/L (136-145) 10/18/23 17:30 Potassium 3.7 mmol/L (3.5-5.1) 10/18/23 17:30 Chloride 100 mmol/L (98-107) 10/18/23 17:30 Carbon Dioxide 26 mmol/L (22-29) 10/18/23 17:30 Anion Gap 16.7 (5-19) 10/18/23 17:30 BUN 13 mg/dL (6-20) 10/18/23 17:30 Creatinine 1.0 mg/dL (0.5-0.9) H 10/18/23 17:30 GFR Calculation 58.0 mL/min (90-130) L 10/18/23 17:30 Glucose 135 mg/dL (65-115) H 10/18/23 17:30 Calculated Osmolality 290 mOsm/kg (285-295) 10/18/23 17:30 Calcium 10.0 mg/dL (8.5-10.5) 10/18/23 17:30 Total Bilirubin 0.6 mg/dL (0.15-1.2) 10/18/23 17:30 AST 17 U/L (0-32) 10/18/23 17:30 ALT 21 U/L (0-33) 10/18/23 17:30 Alkaline Phosphatase 128 U/L (35-105) H 10/18/23 17:30 Total Protein 8.5 g/dL (6.6-8.7) 10/18/23 17:30 Albumin 4.6 g/dL (3.5-5.2) 10/18/23 17:30 Globulin 3.9 g/dL (1.3-4.6) 10/18/23 17:30 Lipase 31 U/L (13-60) 10/18/23 17:30 Urine Color Dark yellow (Yellow) 10/18/23 18:04 Urine Appearance Clear (CLEAR) 10/18/23 18:04 Urine pH 6.5 (5-7) 10/18/23 18:04 Ur Specific [place] 1.005 (1.005-1.030) 10/18/23 18:04 Urine Protein Trace (Negative) 10/18/23 18:04 Urine Glucose (UA) Norm (Normal) 10/18/23 18:04 Urine Ketones Negative (Negative) 10/18/23 18:04 Urine Blood Neg (Negative) 10/18/23 18:04 Urine Nitrate Negative (Negative) 10/18/23 18:04 Urine Bilirubin Neg (Negative) 10/18/23 18:04 Urine Urobilinogen 1 mg/dL (Negative) H 10/18/23 18:04 Ur Leukocyte Esterase Negative (Negative) 10/18/23 18:04 Urine RBC 0-4 /hpf (0-2) H 10/18/23 18:04 Urine WBC 0-4 /hpf (0-5) H 10/18/23 18:04 Ur Squamous Epith Cells 0-4 /hpf (0-5) H 10/18/23 18:04 Amorphous Sediment Not Reportable 10/18/23 18:04 Urine Bacteria Trace /hpf (NONE) 10/18/23 18:04 All radiology interpretation(s) finalized by discharge Discharge Plan Discharge Patient Disposition: Home Clinical Impression: Constipation Qualifiers: Constipation type: unspecified constipation type Qualified Code(s): K59.00 - Constipation, unspecified Condition: Stable Prescriptions: No Action cetirizine 10 mg tablet 10 mg PO DAILY pravastatin 40 mg tablet 40 mg PO QPM ibuprofen 800 mg tablet 800 mg PO Q6H PRN (Reason: Moderate Pain (Scale Score 5-6)) ondansetron HCl 4 mg tablet 4 mg PO Q8H PRN (Reason: Nausea) omeprazole 40 mg capsule,delayed release(DR/EC) 40 mg PO DAILY docusate sodium 100 mg capsule 100 mg PO BID PRN (Reason: Constipation) Tums 500 500 mg calcium (1,250 mg) Tablet,Chewable 500 mg PO TID PRN (Reason: Acid Reflux) acai tabor extract 500 mg Capsule 500 mg PO DAILY Discharge Orders: Discharge ED (Routine); Ordered 10/18/23 Ordered By: Biju Cervantes Referrals: Benita Thomas DO [Primary Care Provider] - Discharge Diet: Usual diet Discharge Activity: Increase activity as tolerated Patient Instructions: Constipation (ED) Activity Restrictions/Additional Instructions: Encourage plenty of fluids. Repeat magnesium citrate 10 ounces in 12 hours if no good results. Follow-up with primary care for further instructions. Return to ER for worsening symptoms such as fever greater than 100.4, blood in vomit or stool, or new concerns. Coding Level of Care Code ED Baggage And Mail Agent for Lela Castillo
[2023-10-18] MEDS: ondansetron 2 mg/ML SDV 2 mL 4 MG IVP (17:40)
[2023-10-18] MEDS: sodium chloride 0.9% 1,000 ML 999 ML IV (17:41)
[2023-10-18 17:42] LABS: Basophils # 0.1 10^3/uL (0.0-0.1); Basophils % 0.9 %; Eosinophils # 0.1 10^3/uL (0.0-0.8); Eosinophils % 0.5 %; Hematocrit 45.2 % (36-47); Lymphocytes # 1.6 10^3/uL (0.8-4.8); Lymphocytes % 15.1 %; Mean Corpuscular HGB Conc 33.8 g/dL (30-55); Mean Corpuscular Hemoglobin 30.2 pg (27-33); Mean Corpuscular Volume 89.3 fl (85-98); Mean Platelet Volume 9.8 fL (7.4-10.4); Monocytes # 0.6 10^3/uL (0.2-0.9); Monocytes % 5.6 %; Neutrophils # 7.96 10^3/uL (1.8-7.7); Neutrophils % 77.6 %; Nucleated Red Blood Cells % 0 %; Platelet Count 364 10^3/cmm (157-399); Red Blood Count 5.06 10^6/uL (3.85-5.65); Red Cell Distribution Width 12.5 % (12.1-15.1); White Blood Count 10.25 10^3/uL (3.29-11.43)
[2023-10-18] MEDS: iohexol 350 mg/mL 500 mL Btl (per mL) IV (17:58)
[2023-10-18 18:04] LABS: Alanine Aminotransferase 21 U/L (0-33); Albumin Level 4.6 g/dL (3.5-5.2); Alkaline Phosphatase 128 U/L (35-105); Anion Gap 16.7 (5-19); Aspartate Amino Transferase 17 U/L (0-32); Blood Urea Nitrogen 13 mg/dL (6-20); Carbon Dioxide 26 mmol/L (22-29); Chloride 100 mmol/L (98-107); Creatinine Clr Calc Pharmacy 62.4068; Globulin 3.9 g/dL (1.3-4.6); Glucose 135 mg/dL (65-115); Lipase 31 U/L (13-60); Osmolality Calculated 290 mOsm/kg (285-295); Potassium 3.7 mmol/L (3.5-5.1); Sodium 139 mmol/L (136-145); Total Bilirubin 0.6 mg/dL (0.15-1.2); Total Protein 8.5 g/dL (6.6-8.7)
[2023-10-18 18:23] VITALS: BP 125/81; PULSE 90; RESP 16; O2SAT 93
[2023-10-18 18:54] LABS: Blood Urine Neg (Negative); Glucose Urine UA Norm (Normal); Ketones Urine Negative (Negative); Nitrate Urine Negative (Negative); Protein Urine Trace (Negative); Specific Gravity, Urine 1.005 (1.005-1.030); Urine Appearance Clear (CLEAR); Urine Color Dark Yellow (Yellow); pH Urine 6.5 (5-7)
[2023-10-18 18:55] LABS: Add Urine Culture? No; Add Urine Microscopic? YES; Bacteria Urine TRACE /hpf; Bilirubin Urine Neg (Negative); Leukocyte Esterase Urine Negative (Negative); RBC Urine 0-4 /hpf (0-2); Squamous Epithelial Cell Urine 0-4 /hpf (0-5); Urobilinogen Urine 1 mg/dL (Negative); WBC Urine 0-4 /hpf (0-5)
[2023-10-18 19:00] VITALS: BP 124/85; PULSE 83; RESP 16; O2SAT 96
[2023-10-18 19:30] VITALS: BP 122/77; PULSE 90; RESP 16; O2SAT 92
[2023-10-18 20:00] VITALS: BP 119/84; PULSE 86; RESP 15; O2SAT 95
[2023-10-18 23:00] VITALS: BP 115/81; PULSE 90; RESP 16; O2SAT 98
[2023-10-18] MEDS: magnesium citrate Btl 296 mL PO (23:19)
== END 2023-10-18 23:05 | disposition home or self-care (01) ==
PROVIDERS: Emergency Provider Nurse Practitioner Family; PCP Family Medicine
DX: K59.00 Constipation, unspecified (principal)
CPT/HCPCS: 36415; 74177; 80053; 81001; 83690; 85025; 96361; 96374; 99285; J2405; J7030; Q9967

== ENCOUNTER 2023-10-20 14:04 | Emergency (ER) | payer MEDICAID, SELFPAY ==
[2023-10-20 14:05] VITALS: BP 110/73; PULSE 97; RESP 16; TEMP 37.2; O2SAT 99
[2023-10-20 14:42] LABS: Basophils # 0.1 10^3/uL (0.0-0.1); Eosinophils # 0.1 10^3/uL (0.0-0.8); Eosinophils % 0.5 %; Hematocrit 39.8 % (36-47); Lymphocytes % 18.9 %; Mean Corpuscular HGB Conc 32.9 g/dL (30-55); Mean Corpuscular Hemoglobin 30.1 pg (27-33); Mean Corpuscular Volume 91.5 fl (85-98); Mean Platelet Volume 9.4 fL (7.4-10.4); Monocytes # 0.9 10^3/uL (0.2-0.9); Monocytes % 7.9 %; Neutrophils # 7.66 10^3/uL (1.8-7.7); Neutrophils % 71.5 %; Nucleated Red Blood Cells % 0 %; Platelet Count 338 10^3/cmm (157-399); Red Blood Count 4.35 10^6/uL (3.85-5.65); Red Cell Distribution Width 12.5 % (12.1-15.1); White Blood Count 10.72 10^3/uL (3.29-11.43)
[2023-10-20 14:58] LABS: Alanine Aminotransferase 16 U/L (0-33); Albumin Level 4.1 g/dL (3.5-5.2); Alkaline Phosphatase 121 U/L (35-105); Anion Gap 15.9 (5-19); Aspartate Amino Transferase 13 U/L (0-32); Blood Urea Nitrogen 5 mg/dL (6-20); Calcium 8.8 mg/dL (8.5-10.5); Carbon Dioxide 26 mmol/L (22-29); Chloride 102 mmol/L (98-107); Creatinine Clr Calc Pharmacy 70.5834; Globulin 3.2 g/dL (1.3-4.6); Glomerular Filtration Rate 65.5 mL/min (90-130); Glucose 118 mg/dL (65-115); Lipase 21 U/L (13-60); Osmolality Calculated 288 mOsm/kg (285-295); Potassium 3.9 mmol/L (3.5-5.1); Sodium 140 mmol/L (136-145); Total Bilirubin 0.4 mg/dL (0.15-1.2); Total Protein 7.3 g/dL (6.6-8.7)
--- NOTE | 2023-10-20 16:30 | XRR_ITS ---
PROCEDURE INFORMATION: Exam: XR Complete Acute Abdomen Series Including Chest Exam date and time: 10/20/2023 4:46 PM Age: 52 years old Clinical indication: Constipation and nausea; Prior surgery; Surgery date: 6+ months; Surgery type: Hernia; Additional info: Abdominal pain TECHNIQUE: Imaging protocol: Radiologic exam. Complete acute abdomen series, including 2 or more views of the abdomen and a single view chest. COMPARISON: CT abdomen pelvis w con* [id number] 10/18/2023 5:49 PM FINDINGS: Lungs: Mild atelectasis in the lung bases. No consolidation. Pleural spaces: Normal. No pleural effusions. No pneumothorax. Heart/Mediastinum: Normal. No cardiomegaly. Gastrointestinal tract: Normal. No bowel dilation. Intraperitoneal space: Normal. No free air. Organs: Cholecystectomy clips. Bones/joints: Normal. No acute fracture. Soft tissues: Normal. XR/XR acute abdomen series [id number] IMPRESSION: No acute findings.
--- NOTE | 2023-10-20 16:31 | ED_ITS ---
HPI - Abdominal Pain 2 General: Chief Complaint: Abdominal Pain Stated Complaint: abd pain, n/v Time Seen by Provider: 10/20/23 16:28 History of Present Illness: 52-year-old female who presents to the e mergency room with continued lack of bowel movement/constipation symptoms. She was seen in the emergency room a few days back and had a CT scan done that showed some colitis. She said she took medications she was given an she still has not had a bowel movement. No focal abdominal pain. She has had some nausea and vomiting. Review of Systems 2 Narrative: Constitutional symptoms: Negative except as documented in HPI. Skin symptoms: Negative except as documented in HPI. Eye symptoms: Negative except as documented in HPI. ENMT symptoms: Negative except as documented in HPI. Respiratory symptoms: Negative except as documented in HPI. Cardiovascular symptoms: Negative except as documented in HPI. Gastrointestinal symptoms: Negative except as documented in HPI. Genitourinary symptoms: Negative except as documented in HPI. Musculoskeletal symptoms: Negative except as documented in HPI. Neurologic symptoms: Negative except as documented in HPI. Psychiatric symptoms: Negative except as documented in HPI. Endocrine symptoms: Negative except as documented in HPI. PFSH ED 2 PFSH: Social History Smoking and tobacco/nicotine status: never used tobacco/nicotine Alcohol intake: never Substance/Drug Use: never Physical Exam 2 Narrative: EXAM NARRATIVE: General: Alert, no acute distress. Skin: Warm, dry. Head: Normocephalic, atraumatic. Neck: Supple, trachea midline. Eye: Extraocular movements are intact. Ears, nose, mouth and throat: mucosa moist. Cardiovascular: Regular, Normal peripheral perfusion. Respiratory: Lungs are clear to auscultation, respirations are non-labored, breath sounds are equal, Symmetrical chest wall expansion. Gastrointestinal: Soft, Nontender, Non distended, Normal bowel sounds. Musculoskeletal: Normal ROM, no deformity. Neurological: Alert and oriented, No focal neurological deficit observed. Psychiatric: Cooperative, appropriate mood & affect. Course 2 Vital Signs: Vital signs: Vital Signs Temperature 98.9 F 10/20/23 14:05 Pulse Rate 88 10/20/23 18:37 Respiratory Rate 16 10/20/23 14:05 Blood Pressure 103/73 10/20/23 18:37 Pulse Oximetry 91 10/20/23 18:37 Oxygen Delivery Me thod Room Air 10/20/23 18:37 MDM - Abdominal Pain Medical Decision Making Medical decision making: Differential diagnosis including but not limited to and based on the above HPI, review of systems and physical exam: Basic lab work was ordered. She has mild leukocytosis. CT scan was ordered she had colitis seen on CT the last time scan to make sure she did not have any obstruction or new findings. Orders placed to evaluate differential diagnosis based on the above differential, HPI and physical exam Lab Review: Laboratory results were reviewed and interpreted by myself the emergency room physician. Lab work is fairly unremarkable. Mild leukocytosis. No renal failure. Sodium is 140. CT of the abdomen pelvis shows a colitis. I reviewed the radiology report I reviewed the patient's medical record. Assessment and plan: Colitis Dehydration ? IV normal saline bolus, IV Solu-Medrol, IV Cipro and Flagyl. IV Zofran. - Discharged home - Discussed plan with patient. Answered any questions. - Evaluation and treatment of this problem were appropriate in the emergency setting. Lab Data 10/20/23 14:34 10/20/23 14:34 Labs/Radiology: Radiology Impressions Chest/Abdomen X-ray 10/20/23 16:30 IMPRESSION: No acute findings. Abdomen/Pelvis CT 10/20/23 17:00 IMPRESSION: 1. Infectious versus inflammatory sigmoid colitis. Laboratory Results WBC 10.72 10^3/uL (3.29-11.43) 10/20/23 14:34 RBC 4.35 10^6/uL (3.85-5.65) 10/20/23 14:34 Hgb 13.10 g/dL (11.27-16.99) 10/20/23 14:34 Hct 39.8 % (36-47) 10/20/23 14:34 MCV 91.5 fl (85-98) 10/20/23 14:34 MCH 30.1 pg (27-33) 10/20/23 14:34 MCHC 32.9 g/dL (30-55) 10/20/23 14:34 RDW 12.5 % (12.1-15.1) 10/20/23 14:34 Plt Count 338 10^3/cmm (157-399) 10/20/23 14:34 MPV 9.4 fL (7.4-10.4) 10/20/23 14:34 Neut % (Auto) 71.5 % 10/20/23 14:34 Lymph % (Auto) 18.9 % 10/20/23 14:34 Bacon % (Auto) 7.9 % 10/20/23 14:34 Eos % (Auto) 0.5 % 10/20/23 14:34 Baso % (Auto) 1.0 % 10/20/23 14:34 Neut # (Auto) 7.66 10^3/uL (1.8-7.7) 10/20/23 14:34 Lymph # (Auto) 2.0 10^3/uL (0.8-4.8) 10/20/23 14:34 Bacon # (Auto) 0.9 10^3/uL (0.2-0.9) 10/20/23 14:34 Eos # (Auto) 0.1 10^3/uL (0.0-0.8) 10/20/23 14:34 Baso # (Auto) 0.1 10^3/uL (0.0-0.1) 10/20/23 14:34 Nucleated RBC % (auto) 0 % 10/20/23 14:34 Nucleated RBCs # 0.0 /100WBC 10/20/23 14:34 Sodium 140 mmol/L (136-145) 10/20/23 14:34 Potassium 3.9 mmol/L (3.5-5.1) 10/20/23 14:34 Chloride 102 mmol/L (98-107) 10/20/23 14:34 Carbon Dioxide 26 mmol/L (22-29) 10/20/23 14:34 Anion Gap 15.9 (5-19) 10/20/23 14:34 BUN 5 mg/dL (6-20) L 10/20/23 14:34 Creatinine 0.9 mg/dL (0.5-0.9) 10/20/23 14:34 GFR Calculation 65.5 mL/min (90-130) L 10/20/23 14:34 Glucose 118 mg/dL (65-115) H 10/20/23 14:34 Calculated Osmolality 288 mOsm/kg (285-295) 10/20/23 14:34 Calcium 8.8 mg/dL (8.5-10.5) 10/20/23 14:34 Total Bilirubin 0.4 mg/dL (0.15-1.2) 10/20/23 14:34 AST 13 U/L (0-32) 10/20/23 14:34 ALT 16 U/L (0-33) 10/20/23 14:34 Alkaline Phosphatase 121 U/L (35-105) H 10/20/23 14:34 Total Protein 7.3 g/dL (6.6-8.7) 10/20/23 14:34 Albumin 4.1 g/dL (3.5-5.2) 10/20/23 14:34 Globulin 3.2 g/dL (1.3-4.6) 10/20/23 14:34 Lipase 21 U/L (13-60) 10/20/23 14:34 Urine Color Yellow (Yellow) 10/20/23 17:09 Urine Appearance Clear (CLEAR) 10/20/23 17:09 Urine pH 5 (5-7) 10/20/23 17:09 Ur Specific Celeste 1.015 (1.005-1.030) 10/20/23 17:09 Urine Protein Trace (Negative) 10/20/23 17:09 Urine Glucose (UA) Norm (Normal) 10/20/23 17:09 Urine Ketones 1+ (Negative) H 10/20/23 17:09 Urine Blood Neg (Negative) 10/20/23 17:09 Urine Nitrate Negative (Negative) 10/20/23 17:09 Urine Bilirubin Neg (Negative) 10/20/23 17:09 Urine Urobilinogen Norm mg/dL (Negative) 10/20/23 17:09 Ur Leukocyte Esterase Trace (Negative) H 10/20/23 17:09 Urine RBC 0-4 /hpf (0-2) H 10/20/23 17:09 Urine WBC 0-4 /hpf (0-5) H 10/20/23 17:09 Ur Squamous Epith Cells 10-15 /hpf (0-5) H 10/20/23 17:09 Amorphous Sediment Not Reportable 10/20/23 17:09 Urine Bacteria 1+ /hpf (NONE) H 10/20/23 17:09 All radiology interpretation(s) finalized by discharge Discharge Plan Discharge Patient Disposition: Home Clinical Impression: Colitis, Dehydration Condition: Stable Prescriptions: New prednisone 20 mg tablet 60 mg PO DAILY Qty: 20 0RF Rx Instructions: 3 tabs (60 mg) x 3 days. 2 tabs (40 mg) x 3 days. 1 tab (20 mg) x 3 days. 1/2 tab (10 mg) x 4 days metronidazole 500 mg tablet 500 mg PO Q8H 10 Days Qty: 30 0RF ciprofloxacin HCl 500 mg tablet 500 mg PO BID 10 Days Qty: 20 0RF ondansetron 8 mg tablet,disintegrating 8 mg PO .q6 PRN (Reason: nausea and vomiting) Qty: 14 0RF Miralax 17 gram/dose powder 17 g PO DAILY Qty: 510 0RF Rx Instructions: Take 1-2 scoops daily for the next 3 months to keep stools soft ciprofloxacin HCl 500 mg tablet 500 mg PO BID 10 Days Qty: 20 0RF glycerin (adult) Suppository 1 supp [place] DAILY PRN (Reason: constipation) Qty: 12 0RF metronidazole 500 mg tablet 500 mg PO Q8H 10 Days Qty: 30 0RF polyethylene glycol 3350 [Miralax] 17 gram/dose powder 17 g PO DAILY Qty: 510 0RF Rx Instructions: Take 1-2 scoops daily for the next 3 months to keep stools soft prednisone 20 mg tablet 60 mg PO DAILY Qty: 20 0RF Rx Instructions: 3 tabs (60 mg) x 3 days. 2 tabs (40 mg) x 3 days. 1 tab (20 mg) x 3 days. 1/2 tab (10 mg) x 4 days ondansetron 8 mg tablet,disintegrating 8 mg PO .q6 PRN (Reason: nausea and vomiting) Qty: 14 0RF No Action cetirizine 10 mg tablet 10 mg PO DAILY pravastatin 40 mg tablet 40 mg PO QPM ibuprofen 800 mg tablet 800 mg PO Q6H PRN (Reason: Moderate Pain (Scale Score 5-6)) ondansetron HCl 4 mg tablet 4 mg PO Q8H PRN (Reason: Nausea) omeprazole 40 mg capsule,delayed release(DR/EC) 40 mg PO DAILY docusate sodium 100 mg capsule 100 mg PO BID PRN (Reason: Constipation) Tums 500 500 mg calcium (1,250 mg) Tablet,Chewable 500 mg PO TID PRN (Reason: Acid Reflux) acai tabor extract 500 mg Capsule 500 mg PO DAILY Discharge Orders: Discharge ED (Routine); Ordered 10/20/23 Ordered By: Kelsey Maxwell Referrals: Benita Thomas, [Primary Care Provider] - 4-7 days Discharge Diet: Advance as tolerated and Full LIquid Discharge Activity: Increase activity as tolerated Patient Instructions: Colitis (ED) Activity Restrictions/Additional Instructions: Thank you for choosing [facility] for your healthcare needs today. Please realize this is an emergency room and that we are providing you with a medical screening exam and this may not be complete and all inclusive of all the testing and or work up that you may need to determine your ailment or severity of your illness. You have been screened and evaluated and felt safe for discharge. Health conditions do change or evolve sometimes and as such it is important that you follow up with your Primary Doctor to be re checked, 3-5 days is a general good time frame for follow up. You are always welcome to return to the ED for re assessment if your symptoms are worsening or you have new concerns Coding Level of Care Code ED Campus Director for Lela Castillo
[2023-10-20 16:55] VITALS: BP 113/66; PULSE 89; O2SAT 94
--- NOTE | 2023-10-20 17:00 | CTR_ITS ---
PROCEDURE INFORMATION: Exam: CT Abdomen And Pelvis With Contrast Exam date and time: 10/20/2023 5:55 PM Age: 52 years old Clinical indication: Abdominal pain; Localized; Left lower quadrant (llq); Prior surgery; Surgery date: 6+ months; Surgery type: Hernia repair; Patient HX: C/O llq pain with constipation TECHNIQUE: Imaging protocol: Computed tomography of the abdomen and pelvis with contrast. Radiation optimization: All CT scans at this facility use at least one of these dose optimization techniques: automated exposure control; mA and/or kV adjustment per patient size (includes targeted exams where dose is matched to clinical indication); or iterative reconstruction. Contrast material: OMNI 350; Contrast volume: 100 ml; Contrast route: INTRAVENOUS (IV); COMPARISON: CT abdomen pelvis w con* [id number] 10/18/2023 5:49 PM RADIATION DOSE METRICS: Total DLP (mGy-cm): 637.97 FINDINGS: Lungs: Mild atelectasis. Liver: Normal. No mass. Gallbladder and bile ducts: Cholecystectomy. The bile ducts are normal. Pancreas: Normal. No ductal dilation. Spleen: Normal. No splenomegaly. Adrenal glands: Normal. No mass. Kidneys and ureters: Normal. No hydronephrosis. Stomach and bowel: Circumferential wall thickening with adjacent fat stranding in the mid to distal sigmoid colon. Scattered stool throughout the colon to the rectum. The stomach and small bowel are unremarkable. No wall thickening or obstruction. Appendix: The appendix is not visualized. No secondary signs of appendicitis. Intraperitoneal space: Unremarkable. No free air. No significant fluid collection. Vasculature: Unremarkable. No abdominal aortic aneurysm. Lymph nodes: Unremarkable. No enlarged lymph nodes. Urinary bladder: Unremarkable as visualized. Reproductive: Hysterectomy. 1.1 cm follicle or cyst in the right ovary. No follow-up recommended. Small left ovary. Bones/joints: Unremarkable. No acute fracture. Soft tissues: Unremarkable. CT/CT abdomen pelvis w con* [id number] IMPRESSION: 1. Infectious versus inflammatory sigmoid colitis.
[2023-10-20 17:45] VITALS: PULSE 81; O2SAT 91
[2023-10-20 17:48] LABS: Glucose Urine UA Norm (Normal); Ketones Urine 1+ (Negative); Protein Urine Trace (Negative); Specific Gravity, Urine 1.015 (1.005-1.030); Urine Appearance Clear (CLEAR); Urine Color Yellow (Yellow); pH Urine 5 (5-7)
[2023-10-20 17:49] LABS: Add Urine Microscopic? YES; Bacteria Urine 1+ /hpf; Bilirubin Urine Neg (Negative); Blood Urine Neg (Negative); Leukocyte Esterase Urine Trace (Negative); Nitrate Urine Negative (Negative); RBC Urine 0-4 /hpf (0-2); Urobilinogen Urine Norm (Negative); WBC Urine 0-4 /hpf (0-5)
[2023-10-20] MEDS: iohexol 350 mg/mL 500 mL Btl (per mL) IV (17:56)
[2023-10-20 18:37] VITALS: BP 103/73; PULSE 88; O2SAT 91
[2023-10-20] MEDS: methylPREDNISolone sod succ 125 mg/2 mL INJ IVP (18:59)
[2023-10-20] MEDS: ciprofloxacin 400 MG/200 ML PREMIX 200 MG IV (19:01)
[2023-10-20] MEDS: ondansetron 2 mg/ML SDV 2 mL 4 MG IVP (19:01)
[2023-10-20] MEDS: metroNIDAZOLE IV 500 MG/100 ML PREMIX 100 MG IV (19:02)
[2023-10-20] MEDS: sodium chloride 0.9% 1,000 ML 999 ML IV (19:02)
[2023-10-20 22:43] VITALS: BP 123/71; PULSE 83; RESP 16; O2SAT 95
== END 2023-10-20 22:44 | disposition home or self-care (01) ==
PROVIDERS: Physician Assistant; Emergency Provider Emergency Medicine; PCP Family Medicine
DX: K52.9 Noninfective gastroenteritis and colitis, unspecified (principal); E86.0 Dehydration
CPT/HCPCS: 36415; 74022; 74177; 80053; 81001; 83690; 85025; 96374; 96375; 99285; J0744; J2405; J2919; J3490; J7030; Q9967

== ENCOUNTER → 2024-02-26 13:18 | Outpatient (BNVA) | payer MEDICAID, SELFPAY | PROVIDERS: PCP Family Medicine; Visit Provider Podiatrist Foot & Ankle Surgery | DX: M79.671 Pain in right foot (principal); M79.672 Pain in left foot; L60.3 Nail dystrophy | CPT/HCPCS: 73630; 99203 ==

== ENCOUNTER → 2024-06-10 12:44 | Outpatient (BNVA) | payer MEDICAID, SELFPAY | PROVIDERS: PCP Family Medicine; Visit Provider Surgery | DX: K59.00 Constipation, unspecified (principal); K21.9 Gastro-esophageal reflux disease without esophagitis | CPT/HCPCS: 99204 ==

== ENCOUNTER 2024-06-19 05:52 | Day surgery (SDC) | payer MEDICAID, SELFPAY ==
[2024-06-19 06:04] VITALS: BMI 25.7
[2024-06-19 06:16] VITALS: BP 112/78; PULSE 95; RESP 18; TEMP 36.2; O2SAT 96
[2024-06-19] MEDS: sodium chloride 0.9% 500 ML 15 ML IV (06:21)
--- NOTE | 2024-06-19 06:25 | ANES.PREANE2 ---
Pre-Anesthetic Assessment Height/Weight: Height 1.63 m Weight 68.039 kg Temp Pulse Resp BP Pulse Ox O2 Del Method 97.1 F L 95 18 112/78 96 Room Air 06/19/24 06:16 06/19/24 06:16 06/19/24 06:16 06/19/24 06:16 06/19/24 06:16 06/19/24 06:16 Operation Date: 06/19/24 07:00 Proposed Procedures p EGD 26879, 34728, G0105, K59.00, K21.9(Not Applicable) - Rolando Lundy DO s Colonoscopy(Not Applicable) - Rolando Lundy DO Familial anesthetic complications: Mother was hard to wake up Was Beta Kaorl taken within 24 hours: N/A Was Clonidine taken within 24 hours: N/A Last intake: Intake Last Liquid Date 06/18/24 Last Liquid Time 23:00 Last Solid Date 06/16/24 Last Solid Time 21:00 Social No alcohol and No tobacco Exam alert, oriented x 3, clear to auscultation bilaterally and regular rate & rhythm Airway Submandibular: within normal limits Cervical ROM: within normal limits Mallampati: Class III Dentition: chipped History/ROS No significant history except as noted and No significant complaints Pulmonary None reported CV/HEM None reported None reported Hepatic None reported GI Gastroesophageal Reflux Disease (None this morning.) Metabolic Hyperlipidemia [facility] Scoliosis Neuropsych Headache Anesthetic Plan ASA status: 2 Anesthesia: Anesthesia Evaluation, General and MAC Risk of > 500 ml blood loss (7ml/kg in children): No Medications/Allergies Home Medications ?Medication ?Instructions ?Recorded ?Confirmed ?Last Taken ?Type calcium carbonate 500 mg PO TID PRN Acid Reflux 08/14/23 06/17/24 06/12/24 History cetirizine 10 mg tablet 10 mg PO DAILY 08/14/23 06/17/24 06/18/24 History docusate sodium 100 mg capsule 100 mg PO BID PRN Constipation 08/14/23 06/17/24 06/18/24 History ibuprofen 800 mg tablet 800 mg PO Q6H PRN Moderate Pain 08/14/23 06/17/24 1 Week Ago History (Scale Score 5-6) ~06/10/24 ondansetron HCl 4 mg tablet 4 mg PO Q8H PRN Nausea 08/14/23 06/17/24 1 Week Ago History ~06/10/24 pravastatin 40 mg tablet 40 mg PO QPM 08/14/23 06/17/24 06/18/24 History glycerin (adult) 1 supp [place] DAILY PRN constipation 10/20/23 06/17/24 06/18/24 Rx #12 ea ondansetron 8 mg disintegrating 8 mg PO .q6 PRN nausea and 10/20/23 06/17/24 1 Week Ago Rx tablet vomiting #14 tabs ~06/10/24 polyethylene glycol 3350 17 17 g PO DAILY #510 grams 10/20/23 06/17/24 06/18/24 Rx gram/dose oral powder (Miralax) pantoprazole 40 mg tablet,delayed 40 mg PO BID 6 weeks #84 tabs 06/10/24 06/17/24 06/18/24 Rx release (Protonix) polyethylene glycol 3350 17 17 g PO DAILY 1 month #510 grams 06/10/24 06/17/24 06/18/24 Rx gram/dose oral powder (Miralax) Allergies Allergy/AdvReac Type Severity Reaction Status Date / Time kiwi Allergy Unknown Verified 06/10/24 13:31 zucchini (for use with DAM Allergy Unknown Verified 06/10/24 13:31 only) [facility] Anesthesia Social History Smoking and tobacco/nicotine status: never used tobacco/nicotine Alcohol intake: never Substance/Drug Use: never Data Anesthesia Cardiac Studies: No Data to Display
--- NOTE | 2024-06-19 06:59 | W.PM.OPSUD ---
Surgery/Procedure H&P Update DATE OF PROCEDURE: June 19, 2024 DATE H&P PERFORMED: 06/10/24 H&P UPDATE INFORMATION: I have reviewed H&P completed within last 30 days, I have examined patient prior to procedure and No changes to prior documentation PLANNED PROCEDURE: Operation Date: 06/19/24 07:00 Proposed Procedures p EGD 24045, 72572, G0105, K59.00, K21.9(Not Applicable) - DO dc Galvan Colonoscopy(Not Applicable) - Rolando Lundy DO
[2024-06-19 07:19] VITALS: BP 125/85; PULSE 86; RESP 18; TEMP 36.2; O2SAT 93
[2024-06-19 07:33] VITALS: BP 125/88; PULSE 94; RESP 18; TEMP 36.2; O2SAT 96
--- NOTE | 2024-06-19 08:01 | ANE.PACU2 ---
Inpatient post-anesthesia follow up: Airway intact: Yes Vital signs: Temperature 97.1 F Pulse Rate 94 Respiratory Rate 18 Blood Pressure 125/88 Pulse Oximetry 96 Oxygen Delivery Me thod Room Air Oxygen Flow Rate Fraction of Inspir ed Oxygen Hydration adequate: Yes Nausea and vomiting: No Pain level: 1 Mental status: Baseline
== END 2024-06-19 08:02 | disposition home or self-care (01) ==
PROVIDERS: PCP Family Medicine; Visit Provider Surgery
PROC: 0DJ08ZZ Inspection of Upper Intestinal Tract, Via Natural or Artificial Opening Endoscopic (ICD-10-PCS; principal; 2024-06-19 07:00)
PROC: 0DJD8ZZ Inspection of Lower Intestinal Tract, Via Natural or Artificial Opening Endoscopic (ICD-10-PCS; CPT 45378; 2024-06-19 07:00)
DX: Z12.11 Encounter for screening for malignant neoplasm of colon (principal); K57.30 Diverticulosis of large intestine without perforation or abscess without bleeding; K21.9 Gastro-esophageal reflux disease without esophagitis; K59.00 Constipation, unspecified; Z79.899 Other long term (current) drug therapy; Z91.018 Allergy to other foods
CPT/HCPCS: 43239; 45378; 88305; J2704; J7040

== ENCOUNTER → 2024-07-08 12:30 | Outpatient (BNVA) | payer MEDICAID, SELFPAY | PROVIDERS: PCP Family Medicine; Visit Provider Surgery | DX: Z09 Encounter for follow-up examination after completed treatment for conditions other than malignant neoplasm (principal); K21.9 Gastro-esophageal reflux disease without esophagitis; K59.00 Constipation, unspecified | CPT/HCPCS: 99214 ==

== ENCOUNTER 2024-07-11 08:50 | Outpatient (CLI) | payer MEDICAID, SELFPAY ==
--- NOTE | 2024-07-11 08:54 | MM_ITS ---
WS: [id number] BILATERAL 3D TOMOSYNTHESIS DIGITAL DIAGNOSTIC MAMMOGRAPHY WITH CAD CLINICAL INFORMATION: ABNORMALITY OF L BREAST HISTORY: Follow-up calcifications COMPARISON: 516 2022 TECHNIQUE: Bilateral CC, MLO, and ML views. FINDINGS: The breasts are composed of heterogeneous fibroglandular density, which can limit the detection of small underlying mass lesions. Again seen are the cluster of calcifications 6 o'clock position LEFT breast mid to posterior depth. These have increased in number and density compared to 202. These remain indeterminant and again recommend further evaluation with stereotactic guided biopsy. RIGHT breast is unchanged. MM/MM diag tomosynthesis [id number] IMPRESSION: DENSITY: The breasts are heterogeneously dense, which may obscure small masses. BI-RADS: 4 - Suspicious Finding - Biopsy Should Be Considered FOLLOW UP: Stereotactic Biopsy Recommended Recommend stereotactic guided biopsy LEFT breast calcifications
== END 2024-07-11 08:51 | disposition home or self-care (01) ==
PROVIDERS: PCP Family Medicine; Visit Provider Nurse Practitioner Family
DX: R92.8 Other abnormal and inconclusive findings on diagnostic imaging of breast (principal); R92.333 Mammographic heterogeneous density, bilateral breasts; R92.1 Mammographic calcification found on diagnostic imaging of breast
CPT/HCPCS: 77062; G0279

== ENCOUNTER 2024-08-06 12:24 | Outpatient (CLI) | payer MEDICAID, SELFPAY ==
--- NOTE | 2024-08-06 | MM_ITS ---
WS: [id number] STEREOTACTIC LEFT BREAST BIOPSY WITH VACUUM ASSISTANCE. History: Heterogeneous LEFT breast calcifications. Biopsy recommended for suspicious calcifications. Procedure, risks, and complications were discussed the patient who agreed to proceed. Prior imaging was reviewed. Cluster of calcifications within the left breast are localized. Stereotactic imaging was performed. Patient was prepped and draped in usual sterile fashion. After 1% lidocaine, calcifications were targeted stereotactically in the LEFT breast. Small incision was made. Needle advanced into the cluster of calcifications LEFT breast with imaging demonstrating appropriate position relative to the calcifications. Multiple vacuum-assisted core biopsies were obtained. Postprocedure imaging demonstrates calcifications within the biopsy specimen. The biopsy cavity was lavaged. Titanium clip was placed at the biopsy site. Postprocedure imaging demonstrates clip in good position. No immediate complications. MM/MM surgical specimen LT IMPRESSION: 1. Uncomplicated vacuum-assisted stereotactic biopsy of calcifications in the LEFT breast. 2. Recommend return to annual screening mammography Pathology: No invasive malignancy. Fibrocystic changes with sclerosing adenosis and microcalcifications.
--- NOTE | 2024-08-06 | MM_ITS ---
WS: [id number] STEREOTACTIC LEFT BREAST BIOPSY WITH VACUUM ASSISTANCE. History: Heterogeneous LEFT breast calcifications. Biopsy recommended for suspicious calcifications. Procedure, risks, and complications were discussed the patient who agreed to proceed. Prior imaging was reviewed. Cluster of calcifications within the left breast are localized. Stereotactic imaging was performed. Patient was prepped and draped in usual sterile fashion. After 1% lidocaine, calcifications were targeted stereotactically in the LEFT breast. Small incision was made. Needle advanced into the cluster of calcifications LEFT breast with imaging demonstrating appropriate position relative to the calcifications. Multiple vacuum-assisted core biopsies were obtained. Postprocedure imaging demonstrates calcifications within the biopsy specimen. The biopsy cavity was lavaged. Titanium clip was placed at the biopsy site. Postprocedure imaging demonstrates clip in good position. No immediate complications. MM/[place] [id number] IMPRESSION: 1. Uncomplicated vacuum-assisted stereotactic biopsy of calcifications in the LEFT breast. 2. Recommend return to annual screening mammography Pathology: No invasive malignancy. Fibrocystic changes with sclerosing adenosis and microcalcifications.
--- NOTE | 2024-08-06 | MM_ITS ---
WS: [email or web address] STEREOTACTIC LEFT BREAST BIOPSY WITH VACUUM ASSISTANCE. History: Heterogeneous LEFT breast calcifications. Biopsy recommended for suspicious calcifications. Procedure, risks, and complications were discussed the patient who agreed to proceed. Prior imaging was reviewed. Cluster of calcifications within the left breast are localized. Stereotactic imaging was performed. Patient was prepped and draped in usual sterile fashion. After 1% lidocaine, calcifications were targeted stereotactically in the LEFT breast. Small incision was made. Needle advanced into the cluster of calcifications LEFT breast with imaging demonstrating appropriate position relative to the calcifications. Multiple vacuum-assisted core biopsies were obtained. Postprocedure imaging demonstrates calcifications within the biopsy specimen. The biopsy cavity was lavaged. Titanium clip was placed at the biopsy site. Postprocedure imaging demonstrates clip in good position. No immediate complications. MM/[place] [id number] IMPRESSION: 1. Uncomplicated vacuum-assisted stereotactic biopsy of calcifications in the LEFT breast. 2. Recommend return to annual screening mammography Pathology: No invasive malignancy. Fibrocystic changes with sclerosing adenosis and microcalcifications.
== END 2024-08-06 12:25 | disposition home or self-care (01) ==
PROVIDERS: PCP Family Medicine; Visit Provider Nurse Practitioner Family
DX: R92.8 Other abnormal and inconclusive findings on diagnostic imaging of breast (principal); N60.22 Fibroadenosis of left breast; R92.0 Mammographic microcalcification found on diagnostic imaging of breast; N60.32 Fibrosclerosis of left breast; N60.42 Mammary duct ectasia of left breast; R92.1 Mammographic calcification found on diagnostic imaging of breast
CPT/HCPCS: 19081; 77065; 88305

== ENCOUNTER 2024-08-06 14:45 | Emergency (ER) | payer MEDICAID, SELFPAY ==
[2024-08-06 14:55] VITALS: BP 118/80; PULSE 92; RESP 14; TEMP 36.5; O2SAT 96; BMI 25.7
--- NOTE | 2024-08-06 15:55 | XRR_ITS ---
PROCEDURE INFORMATION: Exam: XR Right Wrist Exam date and time: 08/06/2024 3:59 PM Age: 53 years old Clinical indication: Right; RT wrist pain no trauma TECHNIQUE: Imaging protocol: Radiologic exam of the right wrist. Views: 3 or more views. COMPARISON: No relevant prior studies available. FINDINGS: Bones/joints: No acute fracture or dislocation. Soft tissues: Normal. XR/XR wrist RT min 3V* [id number] IMPRESSION: No acute osseous findings.
--- NOTE | 2024-08-06 17:52 | W.ED.EXTPRO ---
HPI - Extremity Problem General: Chief complaint: Extremity Injury, Upper Stated complaint: R hand pain Time Seen by Provider: 08/06/24 17:14 Source: patient Mode of arrival: ambulatory Limitations: no limitations History of Present Illness: Patient is a 53-year-old female who presents the emergency department complaining of right wrist pain for the past 2 weeks. States that it started all of a sudden, does not report any inciting event. No trauma and states that she does not work as she is disabled. No previous history of surgeries to her wrist and no history of carpal tunnel. Has not taken any medications, as she states she was told she is unable to take ibuprofen or Tylenol due to biopsy of her breast, states that she had this biopsied today. Notes that the pain has been intermittent for the past 2 weeks, some days will be better and some days will be worse. Directly worsened with range of motion, states that she has had trouble pulling up her pants due to the pain. No other symptoms at this time. Pain does not radiate, states it is primarily to the right distal ulnar region. MD Complaint: joint pain Onset (ago): week(s) Pain Consistency: intermittent Location: right and upper extremity (wrist) Radiation: none Relieving factors: rest Exacerbating factors: range of motion Associated symptoms: Deny chest pain, fever(s) or rash Related Data Home Medications ?Medication ?Instructions ?Recorded ?Confirmed calcium carbonate 500 mg PO TID PRN Acid Reflux 08/14/23 07/08/24 cetirizine 10 mg tablet 10 mg PO DAILY 08/14/23 07/08/24 docusate sodium 100 mg capsule 100 mg PO BID PRN Constipation 08/14/23 07/08/24 ibuprofen 800 mg tablet 800 mg PO Q6H PRN Moderate Pain 08/14/23 07/08/24 Held on 06/19/24. (Scale Score 5-6) Instructions: Resume on 06/21/24. ondansetron HCl 4 mg tablet 4 mg PO Q8H PRN Nausea 08/14/23 07/08/24 pravastatin 40 mg tablet 40 mg PO QPM 08/14/23 07/08/24 Previous Rx's ?Medication ?Instructions ?Recorded glycerin (adult) 1 supp NE DAILY PRN constipation 10/20/23 #12 ea ondansetron 8 mg disintegrating 8 mg PO .q6 PRN nausea and 10/20/23 tablet vomiting #14 tabs polyethylene glycol 3350 17 17 g PO DAILY #510 grams 10/20/23 gram/dose oral powder (Miralax) pantoprazole 40 mg tablet,delayed 40 mg PO BID 6 weeks #84 tabs 06/10/24 release (Protonix) polyethylene glycol 3350 17 17 g PO DAILY 1 month #510 grams 06/10/24 gram/dose oral powder (Miralax) Allergies Allergy/AdvReac Type Severity Reaction Status Date / Time kiwi Allergy Unknown Verified 07/08/24 12:35 zucchini (for use with DAM Allergy Unknown Verified 07/08/24 12:35 only) Review of Systems General: Reports: 10 or more systems reviewed and unremarkable except in HPI and below Const: Denies: fever(s) or chills Card: Denies: chest pain Resp: Denies: dyspnea or productive cough GI: Denies: abdominal pain, nausea, vomiting or diarrhea : Denies: flank pain Musc: Reports: joint pain (right wrist); Denies: neck pain, back pain, extremity pain, extremity swelling, joint swelling, joint redness, joint warmth, limited range of motion or muscle weakness Skin/Breast: Denies: rash Neuro: Denies: headache(s), numbness in extremities or weakness in extremities PFSH ED PFSH: Social History Smoking and tobacco/nicotine status: never used tobacco/nicotine Alcohol intake: never Substance/Drug Use: never Physical Exam Const: COMMON NORMALS: no acute distress, patient oriented x3, no limitations, healthy appearing, alert and well nourished HENMT: COMMON NORMALS: normocephalic and atraumatic HEAD & SCALP: normocephalic and atraumatic Neck/C-Spine: COMMON NORMALS: full ROM, supple and no meningeal signs Resp: COMMON NORMALS: normal respiratory effort, No use of accessory muscles and clear to auscultation bilaterally AUSCULTATION: clear to auscultation bilaterally Cardio: COMMON NORMALS: regular rate and regular rhythm RATE: regular rate RHYTHM: regular rhythm Extremity: COMMON NORMALS: normal to inspection, full ROM, capillary refill normal, no joint enlargement and no clubbing, cyanosis or edema NARRATIVE EXTREMITY EXAM: Mild tenderness to palpation to the ulnar aspect of right wrist. There is no deformity. Negative Tinel sign over the wrist, negative Phalen's. Negative Holli's. Neuro: COMMON NORMALS: patient oriented x3, moves all extremities, no focal motor deficits and no sensory deficits noted SENSORIUM/ORIENTATION: Yes alert MENINGEAL SIGNS: Yes no meningeal signs Skin: COMMON NORMALS: no rashes or lesions noted GENERAL SKIN EXAM: no rashes or lesions noted Course Vital Signs: Vital signs: Vital Signs Temperature 97.7 F 08/06/24 14:55 Pulse Rate 92 08/06/24 14:55 Respiratory Rate 14 08/06/24 14:55 Blood Pressure 118/80 08/06/24 14:55 Pulse Oximetry 96 08/06/24 14:55 Oxygen Delivery Me thod Room Air 08/06/24 14:55 MDM - Extremity (Nontraumatic) Medical Decision Making Patient presents with 2 weeks of right wrist pain, I have little concern for carpal tunnel syndrome as she does not have any specific inciting occupation and negative physical exam testing. There is no recent trauma to report, overall the physical exam was unremarkable. She had not tried any conservative therapy up to this point, stating she was unable to take medications secondary to having to have a biopsy. Told her to begin taking ibuprofen Tylenol and follow-up with her regular doctor if she continues to have pain will probably need an MRI to further evaluate. Discharged in stable condition. Lab Data Radiology Impressions Wrist X-Ray 08/06/24 15:55 IMPRESSION: No acute osseous findings. All radiology interpretation(s) finalized by discharge Discharge Plan Discharge Patient Disposition: Home Clinical Impression: Right wrist sprain Qualifiers: Encounter type: initial encounter Qualified Code(s): S63.501A - Unspecified sprain of right wrist, initial encounter Condition: Stable Prescriptions: No Action pantoprazole [Protonix] 40 mg tablet,delayed release (DR/EC) 40 mg PO BID 42 Days Qty: 84 1RF polyethylene glycol 3350 [Miralax] 17 gram/dose powder 17 g PO DAILY 30 Days Qty: 510 12RF cetirizine 10 mg tablet 10 mg PO DAILY pravastatin 40 mg tablet 40 mg PO QPM ibuprofen 800 mg tablet 800 mg PO Q6H PRN (Reason: Moderate Pain (Scale Score 5-6)) ondansetron HCl 4 mg tablet 4 mg PO Q8H PRN (Reason: Nausea) docusate sodium 100 mg capsule 100 mg PO BID PRN (Reason: Constipation) calcium carbonate 500 mg calcium (1,250 mg) Tablet,Chewable 500 mg PO TID PRN (Reason: Acid Reflux) ondansetron 8 mg tablet,disintegrating 8 mg PO .q6 PRN (Reason: nausea and vomiting) Qty: 14 0RF polyethylene glycol 3350 [Miralax] 17 gram/dose powder 17 g PO DAILY Qty: 510 0RF Rx Instructions: Take 1-2 scoops daily for the next 3 months to keep stools soft glycerin (adult) Suppository 1 supp NE DAILY PRN (Reason: constipation) Qty: 12 0RF Discharge Orders: Discharge ED (Routine); Ordered 08/06/24 Ordered By: Vivek Gama Referrals: Benita Thomas DO [Primary Care Provider] - Patient Instructions: Arthralgia (ED) Activity Restrictions/Additional Instructions: Rest, ice, compression, and elevation. Take ibuprofen and Tylenol. Follow-up with your regular doctor for an MRI if your pain is persisting. Return with any new or worsening. Print Language: Tunisian Coding Level of Care Code ED Workers Compensation Administrator for Lela Castillo
== END 2024-08-06 17:52 | disposition home or self-care (01) ==
PROVIDERS: Emergency Provider Physician Assistant; PCP Family Medicine
DX: S63.105A Unspecified dislocation of left thumb, initial encounter (principal); X58.XXXA Exposure to other specified factors, initial encounter
CPT/HCPCS: 73110; 99283

== ENCOUNTER 2025-02-10 11:30 | Emergency (ER) | payer MEDICAID, SELFPAY ==
--- OUTSIDE RECORDS SUMMARY | 2025-02-10 11:35 | XMS_ITS | Encounter Summary ---
Author Organization [facility] Address [address] [place] [address] Care Team Providers Care Terrazzo Journeyman Name Role Phone Benita Thomas DO Primary Care Provider [phone] Encounter Details Date Type Department Care Team (Latest Contact Info) Description 03/28/2000 [facility] [address] [phone] Aster Freed MD [address] [place] [phone] Supervision of other normal (Primary Dx); Anemia, unspecified; Rhesus isoimmunization affecting management of mother, antepartum condition Social History Tobacco Use Types Packs/Day Years Used Date Smoking Tobacco: Never Assessed Comments Unknown Sex and Gender Information Value Date Recorded Sex Assigned at Not on file Legal Sex Female 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
--- OUTSIDE RECORDS SUMMARY | 2025-02-10 11:35 | XMS_ITS | Encounter Summary ---
Author Organization [facility] Address [address] [place] [address] Care Team Providers Care Anesthesiologist And Critical Care Name Role Phone Benita Thomas DO Primary Care Provider Encounter Details Date Type Department Care Team (Latest Contact Info) Description 04/11/2000 Outpatient Historical [facility] Medicine [address] [phone] Aster Freed MD [address] [place] [phone] Supervision of other normal (Primary Dx) Social History Tobacco Use Types Packs/Day Years Used Date Smoking Tobacco: Never Assessed Comments Unknown Sex and Gender Information Value Date Recorded Sex Assigned at Not on file 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
--- OUTSIDE RECORDS SUMMARY | 2025-02-10 11:35 | XMS_ITS | Encounter Summary ---
Author Organization [facility] Address [address] [place] [address] Care Team Providers Care Electrical Subcontractor Name Role Phone Benita Thomas DO Primary Care Provider [phone] Encounter Details Date Type Department Care Team (Latest Contact Info) Description 12/21/1999 Outpatient Historical [facility] Medicine [address] [phone] Aster Freed MD [address] [place] [phone] Supervision of other normal (Primary Dx) Social History Tobacco Use Types Packs/Day Years Used Date Smoking Tobacco: Never Assessed Comments Unknown Sex and Gender Information Value Date Recorded Sex Assigned at Not on file 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
--- OUTSIDE RECORDS SUMMARY | 2025-02-10 11:35 | XMS_ITS | Encounter Summary ---
Author Organization [facility] Address [address] [place] [address] Care Team Providers Care Non Licensed Nuclear Plant Operator Name Role Phone Benita Thomas DO Primary Care Provider Encounter Details Date Type Department Care Team (Latest Contact Info) Description 02/03/2000 Outpatient Historical [facility] Medicine [address] [phone] Aster Freed MD [address] [place] [phone] Supervision of other normal (Primary Dx) Social History Tobacco Use Types Packs/Day Years Used Date Smoking Tobacco: Never Assessed Comments Unknown Sex and Gender Information Value Date Recorded Sex Assigned at Not on file Legal Sex Female 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
--- OUTSIDE RECORDS SUMMARY | 2025-02-10 11:35 | XMS_ITS | Encounter Summary ---
Author Organization [facility] Address [address] [place] [address] Care Team Providers Care Wildlife Veterinarian Name Role Phone Benita Thomas DO Primary Care Provider Encounter Details Date Type Department Care Team (Latest Contact Info) Description 06/05/2000 Outpatient Historical [facility] Medicine [address] [phone] Aster Freed MD [address] [place] [phone] Supervision of other normal (Primary Dx) Social History Tobacco Use Types Packs/Day Years Used Date Smoking Tobacco: Never Assessed Comments Unknown Sex and Gender Information Value Date Recorded Sex Assigned at Not on file Legal Sex Female 2:42 AM ELECTRICAL CONTRACTOR Gender Identity Not on file Sexual Orientation Not on file documented as of this encounter Plan of Treatment Not on file documented as of this encounter Visit Diagnoses Diagnosis Supervision of other normal - Primary documented in this encounter Care Teams Wildlife Veterinarian Relationship Specialty Start Date End Date Benita Thomas DO [address] [place] [address] PCP - General Family Practice 12/07/10 documented as of this encounter
--- OUTSIDE RECORDS SUMMARY | 2025-02-10 11:35 | XMS_ITS | Encounter Summary ---
Author Organization [facility] Address [address] Bowers: Epic Prelude [place] [address] Care Team Providers Care Instrument Assembler Name Role Phone Benita Thomas DO Primary Care Provider Encounter Details Date Type Department Care Team (Late st Contact Info) Description 11/14/1995 Outpatient Historical John Villatoro MD [address] [place] [address] Social History Tobacco Use Types Packs/Day Years Used Date Smoking Tobacco: Never Assessed Comments Unknown Sex and Gender Information Value Date Recorded Sex Assigned at Not on file Legal Sex Female 4:54 AM ELEMENTARY READING SPECIALIST Gender Identity Not on file Sexual Orientation Not on file documented as of this encounter Plan of Treatment Not on file documented as of this encounter Visit Diagnoses Not on filedocumented in this encounter Additional Health Concerns Infection Onset Date Last Indicated Resolved Time R/O COVID-12/23/2021 12/23/2021 12/23/2021 11:2 7 PM CDT COVID-19 12/23/2021 12/23/2021 01/22/2022 1:16 AM CDT documented as of this encounter Care Teams Instrument Assembler Relationship Specialty Start Date End Date Benita Thomas DO [address] [place] [address] PCP - General Family Practice 12/07/10 documented as of this encounter
--- OUTSIDE RECORDS SUMMARY | 2025-02-10 11:35 | XMS_ITS | Clinical Summary ---
Author Organization [facility] Address [address] [place] [address] Care Team Providers Care Long Term Care Administrator Name Role Phone Benita Thomas Primary Care Provider Allergies No known active allergies Medications multivitamin (DAILY-NITISH) tabletIndications:P oor nutrition Take 1 Tablet by mouth daily. 100 Tablet 6 6 Active docusate sodium (DOK) 100 mg capsuleIndications: Slow transit constipation Take 1 Capsule (100 mg) by mouth 2 times daily. 60 Capsule 6 1 Active bisacodyL (DULCOLAX) 5 mg Delayed Release tabletIndications:S low transit constipation Take 1 Tablet (5 mg) by mouth 1 time daily as needed for Constipation . 30 Tablet 3 1 Active pravastatin (PRAVACHOL) 40 mg tabletIndications:H yperlipidemia, unspecified hyperlipidemia type TAKE 1 TABLET(40 MG) BY MOUTH IN THE EVENING 90 Tablet 2 1 Active omeprazole (PriLOSEC) 20 mg Capsule, Delayed Release(E.C.)Indica tions:Gastroesophag eal reflux disease without esophagitis TAKE 1 CAPSULE(20 MG) BY MOUTH DAILY 30 Capsule 5 1 Active ibuprofen (MOTRIN) 800 mg tabletIndications:L eft upper arm pain TAKE 1 TABLET(800 MG) BY MOUTH EVERY 6 HOURS NEEDED FOR PAIN 90 Tablet 2 1 Active cetirizine (ZyrTEC) 10 mg tabletIndications:S inusitis, unspecified chronicity, unspecified location TAKE 1 TABLET(10 MG) BY MOUTH DAILY 30 Tablet 11 1 Active omeprazole (PriLOSEC) 40 mg Capsule, Delayed Release(E.C.)Indica tions:Gastroesophag eal reflux disease without esophagitis TAKE 1 CAPSULE(40 MG) BY MOUTH DAILY 90 Capsule 4 1 Active ketoconazole (NIZORAL) 2 % CreamIndications:TV (tinea versicolor) Apply to affected area daily. 30 Gram 1 Active Active Problems Problem Noted Date Diagnosed Date Recurrent incisional hernia 11/21/2019 Gastroesophageal reflux disease without esophagi tis 08/09/2018 [place]chdalek hernia 10/06/2015 Umbilical hernia 06/11/2012 Rectus diastasis 06/11/2012 Chronic abdominal pain 12/07/2010 Dyspareunia 12/07/2010 Hyperlipidemia 12/07/2010 Immunizations Immunization Administration Dates Next Due INFLUENZA VACCINE QUADRIVALENT 3 YR UP PF IM Influenza Vaccine Split 3+ Yrs IM 04/10/2012 Family History Medical History Relation Name Comments Cancer Mother Relation Name Status Comments Mother Social History Tobacco Use Types Packs/Day Years Used Date Smoking Tobacco: Never Smokeless Tobacco: Never Tobacco Cessation:Counseling Given: Yes Alcohol Use Standard Drinks/Week Comments No 0 (1 standard drink = 0.6 oz pur e alcohol) Comments No Sex and Gender Information Value Date Recorded Sex Assigned at Not on file Legal 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 Gender Identity Not on file Sexual Orientation Not on file Occupation Industry Job Start Date Job End Date Not on file Not on file Not on file Not on file Last Filed Vital Signs Vital Sign Reading Time Taken Comments Blood Pressure 120/68 10/20/2020 11:20 AM CDT Pulse 92 10/20/2020 11:20 AM CDT Temperature 36.3 C (97.3 F) 10/20/2020 11:20 AM CDT Respiratory Rate 19 12/11/2019 8:33 AM CDT Oxygen Saturation 97% 10/20/2020 11:20 AM CDT Inhaled Oxygen Concentration - - Weight 73.9 kg (163 lb) 10/20/2020 11:20 AM CDT Height 162.6 cm (5' 4 ) 10/20/2020 11:20 AM CDT Body Mass Index 27.98 10/20/2020 11:20 AM CDT Plan of Treatment Health Maintenance Due Date Last Done Comments DTAP/TDAP/TD VACCINES (1 - Tdap) 1988 HEPATITIS B VACCINES (1 of 3 - 19+ 3-dose series) 1988 Preventative Visit-Managed Medicaid 12/29/2011 12/27/2010 FIT-DNA Q 3 years 2014 FIT/FOBT Q 1 year 2014 Flex Sig/CT Colonography Q 5 years 2014 Pre-Diabetes and Diabetes Screening 10/17/2015 10/16/2012, 04/27/2000 ZOSTER VACCINE (1 of 2) 12/20/2019 PAP SMEAR 09/18/2020 09/18/2017, 03/2 08/2015, 12/27/2010 CERVICAL CANCER SCREENING 09/18/2022 HPV/Cotest (21-29) 09/18/2022 09/18/2017, 0 07/30/2015, 12/27/2010 HPV/Cotest (30-65) 09/18/2022 09/18/2017, 0 07/30/2015, 12/27/2010 INFLUENZA VACCINE (#1) 2024 01/30/2019, 2011 BREAST CANCER SCREENING 07/11/2025 07/12/19, 09/20/2022, 09/12/2022, Additional history exists COLORECTAL SCREENING 06/19/2034 06/19/2024, 11/20/2019, 11/04/2010 Colorectal Cancer Screening 06/19/2034 Medical Devices Implanted Type Area Combine Operator Device Identifier Shelf Expiration Date Model / Serial / Lot Mesh Soft Mesh [id number] - [id number] Implanted:11/20 by John Castanon MD at [facility] (Quantity not on file) Mesh N/A: Abdomen CR [employer] [id number] 01/03/2024 [id number] / / [id number] Procedures Procedure Name Priority Date/Time Associated Diagnosis Comments CERV/VAG CYTO SCREEN PAP RLFX HPV Routine 09/18/2017 3:49 PM CDT Vaginal discharge Pain in female genitalia on intercourse MAMMO SCREEN BILAT W OR WO CAD Routine 09/08/2015 Visit for screening mammogram HEMOGLOBIN A1C Routine 10/16/2012 9:36 AM CDT Hyperlipidemia ENDOSCOPY, COLON, SCREENING Routine 11/04/2010 from Last 3 Months or Most Recently Relevant to Health Maintenance Results * CERV/VAG CYTOPATH, THIN PREP IMAGR RFLX HPV (09/18/2017 3:49 PM CDT) CLINICAL INFORMATION SEE COMMENT 09/25/2017 2:46 PM CDT [facility] Comment: Routine exam Other high risk factor, specify LAST MENSTRUAL PERIOD SEE COMMENT 09/25/2017 2:46 PM CDT [facility] Comment:INFORMATION NOT PROV IDED PREV PAP: SEE COMMENT 09/25/2017 2:46 PM CDT [facility] Comment:INFORMATION NOT PROV IDED PREV BX: SEE COMMENT 09/25/2017 2:46 PM CDT [facility] Comment:INFORMATION NOT PROV IDED SOURCE SEE COMMENT 09/25/2017 2:46 PM CDT [facility] Comment:Vaginal cuff ADEQUACY: SEE COMMENT 09/25/2017 2:46 PM CDT [facility] Comment: Satisfactory for evaluation. Endocervical/transformation zone component absent. PAP INTERP SEE COMMENT 09/25/2017 2:46 PM CDT [facility] Comment:Negative for intraep ithelial lesion or malignancy. COMMENT SEE COMMENT 09/25/2017 2:46 PM CDT [facility] Comment: This Pap test has been evaluated with computer assisted technology. ADMISSION LIAISON: SEE COMMENT 2017 2:46 PM CDT [facility] Comment:BEF, CT(ASCP) EXPLANATORY NOTE SEE COMMENT 018 2:46 PM CDT [facility] Comment: EXPLANATORY NOTE: The Pap is a screening test for cervical cancer. It is not a diagnostic test and is subject to false negative and false positive results. It is most reliable when a satisfactory sample, regularly obtained, is submitted with relevant clinical findings and history, and when the Pap result is evaluated along with historic and current clinical information. Genital (Vaginal cuff) Collection / Unknown 09/18/2017 3:49 PM CDT 09/19/2017 9:53 AM CDT Narrative [facility] - 09/25/2017 2:46 PM CDT Performing Organization Information: Site ID: Name: [email or web address] Address: [address] [place] [address] Director: Carrington Echevarria us Priya Rose DIVISION MANAGER PATHOLOGY/CYTOLOGY ORDERABLES Final Result [facility] * MAMMO DIGITAL SCREEN BILAT (09/08/2015) Anatomical Region Laterality Modality Breast Bilateral Other us Benita L William DO MAMMO ORDERABLES Final Resu lt * HEMOGLOBIN A1C (10/16/2012 9:36 AM CDT) HEMOGLOBIN A1C 5.4 4.0 - 6.0 % [facility] Comment: This test was performed on a BetterLesson II instrument using HPLC methodology. Blood specimen (specimen) 10/16/2012 9:36 AM CDT 10/16/2012 9:37 AM CDT Benita L William DO CHEMISTRY ORDERABLES Final Result INTERFACE SYSTEM Refer to clinic/hospital department [facility] CLIA# [id number] [address] [place] [id number] * ENDOSCOPY, COLON, SCREENING (11/04/2010) us Abstract Spg Provider GI PROCEDURE ORDERABLES Fi nal Result from Last 3 Months or Most Recently Relevant to Health Maintenance Insurance MEDICAID [place] [employer] Medicaid Advance Directives For more information, please contact: [phone] * Full Code (Latest Code Status on File) Date Activated Date Inactivated Comments 11/21/2019 4:16 PM 11/25/2019 4:30 PM * Full Code Date Activated Date Inactivated Comments 11/21/2019 7:00 AM 11/21/2019 4:16 PM * Full Code Date Activated Date Inactivated Comments 11/20/2019 8:09 AM 11/20/2019 11:49 AM * Full Code Date Activated Date Inactivated Comments 06/14/2012 9:51 AM 06/14/2012 3:18 PM * Full Code Date Activated Date Inactivated Comments 06/14/2012 7:20 AM 06/14/2012 9:51 AM Care Teams Long Term Care Administrator Relationship Specialty Start Date End Date Benita Thomas DO [address] [place] [address] PCP - General Family Practice 12/07/10
--- OUTSIDE RECORDS SUMMARY | 2025-02-10 11:35 | XMS_ITS | Encounter Summary ---
Author Organization [facility] Address [address] [place] [address] Care Team Providers Care Extruder Operator Helper Name Role Phone Benita Thomas DO Primary Care Provider Encounter Details Date Type Department Care Team (Latest Contact Info) Description 03/23/2000 Outpatient Historical [facility] Medicine[address] [address] Issac Novak MD [address] [address] Supervision of other normal (Primary Dx) Social History Tobacco Use Types Packs/Day Years Used Date Smoking Tobacco: Never Assessed Comments Unknown Sex and Gender Information Value Date Recorded Sex Assigned at Not on file 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
--- OUTSIDE RECORDS SUMMARY | 2025-02-10 11:36 | XMS_ITS | Encounter Summary ---
Author Organization [facility] Address [address] [place] [address] Care Team Providers Care Ui Software Engineer Name Role Phone Benita Thomas DO Primary Care Provider Encounter Details Date Type Department Care Team (Latest Contact Info) Description 05/25/2000 Outpatient Historical [facility] Medicine [address] [phone] Aster Freed MD [address] [place] [phone] Supervision of other normal (Primary Dx) Social History Tobacco Use Types Packs/Day Years Used Date Smoking Tobacco: Never Assessed Comments Unknown Sex and Gender Information Value Date Recorded Sex Assigned at Not on file Legal Sex Female 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
--- OUTSIDE RECORDS SUMMARY | 2025-02-10 11:36 | XMS_ITS | Encounter Summary ---
Author Organization [facility] Address [address] Attn: [place] [address] Care Team Providers Care Table Games Dual Rate Supervisor Name Role Phone Benita Thomas DO Primary Care Provider [phone]- [phone] Encounter Details Date Type Department Care Team (Late st Contact Info) Description 12/21/1999 Outpatient Historical Sayra Pradhan, SEASONING SPRAYER [address] [place] [phone] Social History Tobacco Use Types Packs/Day Years Used Date Smoking Tobacco: Never Assessed Comments Unknown Sex and Gender Information Value Date Recorded Sex Assigned at Not on file Legal Sex Female 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
--- OUTSIDE RECORDS SUMMARY | 2025-02-10 11:36 | XMS_ITS | Encounter Summary ---
Author Organization [facility] Address [address] [place] [address] Care Team Providers Care Fitting Supervisor Name Role Phone Benita Thomas DO Primary Care Provider [phone]- [phone] Encounter Details Date Type Department Care Team (Latest Contact Info) Description 10/24/2002 Outpatient Historical [facility] Max[facility] Surgery[address] [place] [address] [place] To DDS NO ADDRESS ON FILE UNSPEC DENTAL CARIES (Primary Dx) Social History Tobacco Use Types Packs/Day Years Used Date Smoking Tobacco: Never Assessed Comments Unknown Sex and Gender Information Value Date Recorded Sex Assigned at Not on file Legal 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
--- OUTSIDE RECORDS SUMMARY | 2025-02-10 11:36 | XMS_ITS | Encounter Summary ---
Author Organization [facility] Address [address] [place] [address] Care Team Providers Care Senior Tech Manufacturing Engineering Name Role Phone Benita Thomas DO Primary Care Provider Encounter Details Date Type Department Care Team (Latest Contact Info) Description 04/20/2004 Outpatient Historical [facility] [address] [place] [address] Gamaliel Lorenzana MD [address] [place] [address] OTHER MALAISE AND FATIGUE (Primary Dx) Social History Tobacco Use Types Packs/Day Years Used Date Smoking Tobacco: Never Assessed Comments Unknown Sex and Gender Information Value Date Recorded Sex Assigned at Not on file Legal Sex Female 2:42 AM SOLUTION DIRECTOR Gender Identity Not on file Sexual Orientation Not on file documented as of this encounter Plan of Treatment Not on file documented as of this encounter Visit Diagnoses Diagnosis Other malaise and fatigue- Primary documented in this encounter Care Teams Senior Tech Manufacturing Engineering Relationship Specialty Start Date End Date Benita Thomas DO [address] [place] [address] PCP - General Family Practice 12/07/10 documented as of this encounter
--- OUTSIDE RECORDS SUMMARY | 2025-02-10 11:36 | XMS_ITS | Encounter Summary ---
Author Organization [facility] Address [address] [place] [address] Care Team Providers Care Chipper Name Role Phone Benita Thomas DO Primary Care Provider Encounter Details Date Type Department Care Team (Latest Contact Info) Description 12/28/1999 Outpatient Historical [facility] Medicine [address] [phone] Aster Freed MD [address] [place] [phone] Supervision of other normal (Primary Dx) Social History Tobacco Use Types Packs/Day Years Used Date Smoking Tobacco: Never Assessed Comments Unknown Sex and Gender Information Value Date Recorded Sex Assigned at Not on file Legal 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
--- OUTSIDE RECORDS SUMMARY | 2025-02-10 11:36 | XMS_ITS | Encounter Summary ---
Author Organization [facility] Address [address] [place] [address] Care Team Providers Care Claim Taker Name Role Phone Benita Thomas DO Primary Care Provider [phone] Encounter Details Date Type Department Care Team (Latest Contact Info) Description 10/20/2003 Outpatient Historical [facility] [address] [place] [address] Gamaliel Lorenzana MD [address] [place] [address] CELLULITIS NOS (Primary Dx) Social History Tobacco Use Types Packs/Day Years Used Date Smoking Tobacco: Never Assessed Comments Unknown Sex and Gender Information Value Date Recorded Sex Assigned at Not on file Legal Sex Female 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
--- OUTSIDE RECORDS SUMMARY | 2025-02-10 11:36 | XMS_ITS | Encounter Summary ---
Author Organization [facility] Address [address] [place] [address] Care Team Providers Care Creative Developer Name Role Phone Benita Thomas DO Primary Care Provider [phone] Encounter Details Date Type Department Care Team (Latest Contact Info) Description 11/03/2003 Outpatient Historical [facility] [address] [place] [address] Gamaliel Lorenzana MD [address] [place] [phone] DERMATITIS NOS (Primary Dx) Social History Tobacco Use Types Packs/Day Years Used Date Smoking Tobacco: Never Assessed Comments Unknown Sex and Gender Information Value Date Recorded Sex Assigned at Not on file Legal Sex Female 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
--- OUTSIDE RECORDS SUMMARY | 2025-02-10 11:36 | XMS_ITS | Encounter Summary ---
Author Organization [facility] Address [address] [place] [address] Care Team Providers Care Crime Scene Technician Name Role Phone Benita Thomas DO Primary Care Provider Encounter Details Date Type Department Care Team (Latest Contact Info) Description 07/13/2004 Outpatient Historical [facility] [address] [place] [address] Gamaliel Lorenzana MD [address] [place] [phone] DERMATITIS NOS (Primary Dx) Social History Tobacco Use Types Packs/Day Years Used Date Smoking Tobacco: Never Assessed Comments Unknown Sex and Gender Information Value Date Recorded Sex Assigned at Not on file Legal 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
--- OUTSIDE RECORDS SUMMARY | 2025-02-10 11:36 | XMS_ITS | Encounter Summary ---
Author Organization [facility] Address [address] [place] [address] Care Team Providers Care Clinical Research Spec Name Role Phone Benita Thomas DO Primary Care Provider Encounter Details Date Type Department Care Team (Latest Contact Info) Description 02/27/2004 Outpatient Historical [facility] [address] [place] [address] Gamaliel Lorenzana MD [address] [place] [phone] ACUTE PHARYNGITIS (Primary Dx) Social History Tobacco Use Types Packs/Day Years Used Date Smoking Tobacco: Never Assessed Comments Unknown Sex and Gender Information Value Date Recorded Sex Assigned at Not on file Legal Sex Female 2:[address]EE Gender Identity Not on file Sexual Orientation Not on file documented as of this encounter Plan of Treatment Not on file documented as of this encounter Visit Diagnoses Diagnosis Acute pharyngitis- Primary documented in this encounter Care Teams Clinical Research Spec Relationship Specialty Start Date End Date Benita Thomas DO [address] [place] [address] PCP - General Family Practice 12/07/10 documented as of this encounter
--- OUTSIDE RECORDS SUMMARY | 2025-02-10 11:36 | XMS_ITS | Encounter Summary ---
Author Organization [facility] Address [address] [place] [address] Care Team Providers Care Helminthologist Name Role Phone Benita Thomas DO Primary Care Provider [phone] Encounter Details Date Type Department Care Team (Latest Contact Info) Description 04/19/2004 Outpatient Historical [facility] [address] [place] [address] Gamaliel Lorenzana MD [address] [place] [address] OTHER MALAISE AND FATIGUE (Primary Dx) Social History Tobacco Use Types Packs/Day Years Used Date Smoking Tobacco: Never Assessed Comments Unknown Sex and Gender Information Value Date Recorded Sex Assigned at Not on file Legal Sex Female 2:42 AM HELPDESK ANALYST Gender Identity Not on file Sexual Orientation Not on file documented as of this encounter Plan of Treatment Not on file documented as of this encounter Visit Diagnoses Diagnosis Other malaise and fatigue- Primary documented in this encounter Care Teams Helminthologist Relationship Specialty Start Date End Date Benita Thomas DO [address] [place] [address] PCP - General Family Practice 12/07/10 documented as of this encounter
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
--- OUTSIDE RECORDS SUMMARY | 2025-02-10 11:36 | XMS_ITS | Encounter Summary ---
Author Organization [facility] Address [address] [place] [address] Care Team Providers Care Center Medical Director Name Role Phone Benita Thomas DO Primary Care Provider Encounter Details Date Type Department Care Team (Latest Contact Info) Description 06/20/2000 Outpatient Historical [facility] Medicine [address] [phone] Aster Freed MD [address] [place] [address] Supervision of other normal (Primary Dx) Social History Tobacco Use Types Packs/Day Years Used Date Smoking Tobacco: Never Assessed Comments Unknown Sex and Gender Information Value Date Recorded Sex Assigned at Not on file Legal Sex Female 2: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
--- OUTSIDE RECORDS SUMMARY | 2025-02-10 11:36 | XMS_ITS | Encounter Summary ---
Author Organization [facility] Address [address] [place] [address] Care Team Providers Care Jewelry Facer Name Role Phone Benita Thomas DO Primary Care Provider Encounter Details Date Type Department Care Team (Latest Contact Info) Description 04/08/2004 Outpatient Historical [facility] [address] [place] [address] Gamaliel Lorenzana MD [address] [place] [address] TRACHEA/BRONCHUS DIS NEC (Primary Dx) Social History Tobacco Use Types Packs/Day Years Used Date Smoking Tobacco: Never Assessed Comments Unknown Sex and Gender Information Value Date Recorded Sex Assigned at Not on file Legal Sex Female 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
--- OUTSIDE RECORDS SUMMARY | 2025-02-10 11:36 | XMS_ITS | Encounter Summary ---
Author Organization [facility] Address [address] [place] [address] Care Team Providers Care Willower Name Role Phone Benita Thomas DO Primary Care Provider [phone] Encounter Details Date Type Department Care Team (Latest Contact Info) Description 05/05/2004 Outpatient [facility] [address] [place] [address] Gamaliel Lorenzana MD [address] [place] [address] CELLULITIS NOS (Primary Dx) Social History Tobacco Use Types Packs/Day Years Used Date Smoking Tobacco: Never Assessed Comments Unknown Sex and Gender Information Value Date Recorded Sex Assigned at Not on file Legal Sex Female 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
--- OUTSIDE RECORDS SUMMARY | 2025-02-10 11:36 | XMS_ITS | Encounter Summary ---
Author Organization [facility] Address [address] [place] [address] Care Team Providers Care Management Specialist Name Role Phone Benita Thomas DO Primary Care Provider Encounter Details Date Type Department Care Team (Latest Contact Info) Description 03/31/2004 Outpatient Historical [facility] [address] [place] [address] Gamaliel Lorenzana MD [address] [place] [address] BRONCHITIS NOS (Primary Dx) Social History Tobacco Use Types Packs/Day Years Used Date Smoking Tobacco: Never Assessed Comments Unknown Sex and Gender Information Value Date Recorded Sex Assigned at Not on file Legal Sex Female 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
--- OUTSIDE RECORDS SUMMARY | 2025-02-10 11:36 | XMS_ITS | Encounter Summary ---
Author Organization [facility] Address [address] [place] [address] Care Team Providers Care Template Cutter Name Role Phone Benita Thomas DO Primary Care Provider [phone] Encounter Details Date Type Department Care Team (Latest Contact Info) Description 06/27/2000 Outpatient Historical [facility] Medicine [address] [phone] Aster Freed MD [address] [place] [phone] Supervision of other normal (Primary Dx) Social History Tobacco Use Types Packs/Day Years Used Date Smoking Tobacco: Never Assessed Comments Unknown Sex and Gender Information Value Date Recorded Sex Assigned at Not on file Legal Sex Female 2: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
--- OUTSIDE RECORDS SUMMARY | 2025-02-10 11:36 | XMS_ITS | Encounter Summary ---
Author Organization [facility] Address [address] [place] [address] Care Team Providers Care Mechanical Integrity Specialist Name Role Phone Benita Thomas DO Primary Care Provider +[phone]- [phone] Encounter Details Date Type Department Care Team (Latest Contact Info) Description 05/11/2000 Outpatient Historical [facility] Medicine [address] [phone] Aster Freed MD [address] [place] [phone] Supervision of other normal (Primary Dx); Poor growth, affecting management of mother, antepartum condition or complication; Other diseases of trachea and bronchus, not elsewhere classified Social History Tobacco Use Types Packs/Day Years Used Date Smoking Tobacco: Never Assessed Comments Unknown Sex and Gender Information Value Date Recorded Sex Assigned at Not on file Legal Sex Female 2: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
--- OUTSIDE RECORDS SUMMARY | 2025-02-10 11:36 | XMS_ITS | Encounter Summary ---
Author Organization [facility] Address [address] [place] [address] Care Team Providers Care Flat Optical Element Maker Name Role Phone Benita Thomas DO Primary Care Provider [phone] Reason for Visit * Reason Comments Medication Refill Encounter Details Date Type Department Care Team (Late st Contact Info) Description 12/05/2024 Telephone [facility] Family Medicine [place] [address] [place] [address] Benita Thomas DO [address] [place] [address] Medication Refill Social History Tobacco Use Types Packs/Day Years Used Date Smoking Tobacco: Never Passive Smoke Exposure: Never Smokeless Tobacco: Never Alcohol Use Standard Drinks/Week Comments No 0 (1 standard drink = 0.6 oz pur e alcohol) Comments No Sex and Gender Information Value Date Recorded Sex Assigned at Not on file 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 Lundy [facility]. Per pharmacy they believe pt was prescribed this after having a procedure. Pt will need to be seen for new medication request. Genevieve LALA * Telephone Encounter - Mayra Sommers - 12/05/2024 12:10 PM CDT Copied from [facility] #[id number]. Topic: Medication Request >> Dec 05, 2024 12:08 PM Mayra Araujo wrote: Caller Name: Angi Gomez Callback Number: [phone] (mobile) Medication (Ask patient/caregiver to spell if possible): pantotrazole 40 mg, directions take one tablet by mouth twice daily for 6 weeks Note: All medication prescriptions can be requested using one CRM Preferred Pharmacy: [facility] - [place], [place] - [address] [facility] [address] [address] Call Notes: I did not see this on her chart. She spelled it out for me. She is requesting a refill for her stomach, please advise. Did caller contact the correct clinic for prescribing provider? Yes Ask caller if the refill is for a controlled medication. Is this for a controlled Medication? Unsure Is there an encounter open? No documented in this encounter Plan of Treatment Not on file documented as of this encounter Visit Diagnoses Not on filedocumented in this encounter Additional Health Concerns Assessment Noted Time PHQ-9 Depression Total Score: 1 05/21/19 25 4:09 PM INFANTRY INDIRECT FIRE CREWMEMBER documented as of this encounter Care Teams Flat Optical Element Maker Relationship Specialty Start Date End Date Benita Thomas DO [address] [place] [phone] PCP - General Family Practice 12/07/10 documented as of this encounter
--- OUTSIDE RECORDS SUMMARY | 2025-02-10 11:36 | XMS_ITS | Encounter Summary ---
Author Organization [facility] Address [address] [place] [address] Care Team Providers Care Lap Maker Name Role Phone Benita Thomas DO Primary Care Provider [phone] Encounter Details Date Type Department Care Team (Latest Contact Info) Description 03/15/2004 Outpatient Historical [facility] [address] [place] [address] Gamaliel Lorenzana MD [address] [place] [address] UNSPECIFIED VIRAL INFECTION (Primary Dx) Social History Tobacco Use Types Packs/Day Years Used Date Smoking Tobacco: Never Assessed Comments Unknown Sex and Gender Information Value Date Recorded Sex Assigned at Not on file 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
--- OUTSIDE RECORDS SUMMARY | 2025-02-10 11:36 | XMS_ITS | Encounter Summary ---
Author Organization [facility] Address [address] [place] [address] Care Team Providers Care Medical Technologist Prn Name Role Phone Benita Thomas DO Primary Care Provider Encounter Details Date Type Department Care Team (Latest Contact Info) Description 02/23/2005 Outpatient Historical [facility] [address] [place] [address] Gamaliel Lorenzana MD [address] [place] [address] BRONCHITIS NOS (Primary Dx); DYSURIA Social History Tobacco Use Types Packs/Day Years Used Date Smoking Tobacco: Never Assessed Comments Unknown Sex and Gender Information Value Date Recorded Sex Assigned at Not on file 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
--- OUTSIDE RECORDS SUMMARY | 2025-02-10 11:36 | XMS_ITS | Encounter Summary ---
Author Organization [facility] Address [address] 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
--- OUTSIDE RECORDS SUMMARY | 2025-02-10 11:36 | XMS_ITS | Encounter Summary ---
Author Organization [facility] Address [address] [place] [address] Care Team Providers Care Patrol Mother Name Role Phone Benita Thomas DO Primary Care Provider [phone] Encounter Details Date Type Department Care Team (Latest Contact Info) Description 07/11/2000 Outpatient Historical [facility] Medicine [address] [phone] Aster Freed MD [address] [place] [phone] care and examination immediately after delivery (Primary Dx) Social History Tobacco Use Types Packs/Day Years Used Date Smoking Tobacco: Never Assessed Comments Unknown Sex and Gender Information Value Date Recorded Sex Assigned at Not on file 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
--- OUTSIDE RECORDS SUMMARY | 2025-02-10 11:36 | XMS_ITS | Clinical Summary ---
Author Organization [facility] Address [address] [place] [address] Care Team Providers Care Family Literacy Coordinator Name Role Phone Benita Thomas Primary Care Provider Allergies No known active allergies Medications ondansetron (ZOFRAN) 4 mg TabletIndications :Nausea TAKE 1 TABLET BY MOUTH EVERY 8 HOURS NEEDED FOR NAUSEA/EMESIS. 30 Tablet 2 024 Active ketotifen (ZADITOR) 0.025% solutionIndicatio ns:Allergic conjunctivitis of both eyes Administer 1 Drop in both eyes 2 times daily. 10 mL 2 024 Active mupirocin (BACTROBAN) 2 % OintmentIndicatio ns:Skin irritation Apply to affected area daily. 22 Gram 2 025 Active cetirizine (ZyrTEC) 10 mg tablet Take 1 Tablet (10 mg) by mouth daily. 90 Tablet 3 025 Active polyethylene glycol 3350 (Gavilax) 17 gram/dose PowderIndications :Other constipation Mix AND Dissolve 17 grams (ONE capful) in EIGHT ounces of water AND drink entire liquid daily. 1530 Gram 1 025 Active lactulose (ENULOSE) 10 gram/15 mL oral solutionIndicatio ns:Slow transit constipation Take 30 mL by mouth 2 times daily. 600 mL 3 025 Active pantoprazole (PROTONIX) 40 mg Tablet, Delayed Release (E.C.)Indications :Gastroesophageal reflux disease without esophagitis Take 1 Tablet (40 mg) by mouth 2 times daily. 180 Tablet 3 025 Active ibuprofen (MOTRIN) 800 mg tabletIndications :Chronic pain syndrome TAKE ONE TABLET BY MOUTH EVERY EIGHT hours as needed for mild pain 90 Tablet 3 025 Active pravastatin (PRAVACHOL) 40 mg tablet TAKE ONE TABLET BY MOUTH EVERY EVENING 90 Tablet 4 025 Active pravastatin (PRAVACHOL) 40 mg tablet Take 1 Tablet (40 mg) by mouth late in the day. *NEEDS APPOINTMENT AND LABS FOR MORE REFILLS* 30 Tablet 025 2024 Discontinued Active Problems Problem Noted Date Diagnosed Date Acquired absence of both cervix and uterus 08/24 Recurrent incisional hernia 11/21/2019 Gastroesophageal reflux disease without esophagi tis 08/09/2018 Bochdalek hernia 10/06/2015 Umbilical hernia 06/11/2012 Rectus diastasis 06/11/2012 Chronic abdominal pain 12/07/2010 Dyspareunia 12/07/2010 Hyperlipidemia 12/07/2010 Encounters Date Type Department Care Team Description 01/27/2025 Refill [facility] [address] [facility] [place] [address] Benita Thomas DO 01/21/2025 Results Follow-Up [facility] [address] [facility] [place] [address] Rocio Ortiz, NIKKI GIARDIA & CRYPTOSPORIDIUM ANTIGEN, OVA AND PARASITE SCREEN 01/20/2025 Telephone [facility] [address] [facility] [place] [address] Benita Thomas DO Results; Patient Communication 01/14/2025 2:00 PM CDT Office Visit [facility] [address] [facility] [place] [address] Rocio Ortiz, DRIVER MESSENGER Worms in stool (Primary Dx) 01/02/2025 Telephone [facility] [address] [place] [address] Benita Thomas, DO Patient Communication 12/27/2024 Refill [facility] [address] [place] [address] Benita Thomas, DO 12/27/2024 Refill [facility] [address] [place] [address] Rocio Ortiz, DRIVER MESSENGER Chronic pain syndrome 12/25/2024 Refill [facility] [address] [place] [address] Rocio Ortiz, DRIVER MESSENGER Slow transit constipation 12/10/2024 2:20 PM CDT Video Visit [facility] [address] [place] [address] Rocio Ortiz, DRIVER MESSENGER Gastroesophageal reflux disease without esophagitis (Primary Dx); Slow transit constipation 12/10/2024 External Device Data STL ABSTRACTION Provider, Abstract 12/05/2024 Telephone [facility] [address] [place] [address] Benita Thomas, DO Medication Refill 11/25/2024 Refill [facility] [address] [place] [address] Jensen, August, DRIVER MESSENGER Other constipation 11/20/2024 External Device Data STL ABSTRACTION Provider, Abstract 11/20/2024 External Device Data ST[facility] ABSTRACTION Provider, Abstract from Last 3 Months Immunizations Immunization Administration Dates Next Due INFLUENZA VACCINE QUADRIVALENT 3 YR UP PF IM Influenza Vaccine Split 3+ Yrs IM 04/10/2012 Family History Medical History Relation Name Comments Cancer Mother Relation Name Status Comments Mother Social History Tobacco Use Types Packs/Day Years Used Date Smoking Tobacco: Never Passive Smoke Exposure: Never Smokeless Tobacco: Never Tobacco Cessation:Counseling Given: No Alcohol Use Standard Drinks/Week Comments No 0 (1 standard drink = 0.6 oz pur e alcohol) Comments No Sex and Gender Information Value Date Recorded Sex Assigned at Not on file 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 Gender Identity Not on file Sexual Orientation Not on file Last Filed Vital Signs Vital Sign Reading Time Taken Comments Blood Pressure 126/66 01/14/2025 1:58 PM CDT Pulse 100 01/14/2025 1:58 PM CDT Temperature 36.4 C (97.6 F) 01/14/2025 1:58 PM CDT Respiratory Rate 18 01/14/2025 1:58 PM CDT Oxygen Saturation 94% 01/14/2025 1:58 PM CDT Inhaled Oxygen Concentration - - Weight 80.3 kg (177 lb) 01/14/2025 1:58 PM CDT Height 162.6 cm (5' 4 ) 01/14/2025 1:58 PM CDT Body Mass Index 30.38 01/14/2025 1:58 PM CDT Plan of Treatment Health Maintenance Due Date Last Done Comments Pre-Diabetes and Diabetes Screening 1969 DTAP/TDAP/TD VACCINES (1 - Tdap) 1988 HEPATITIS B VACCINES (1 of 3 - 19+ 3-dose series) 1988 Preventative Visit-Managed Medicaid 12/29/2011 12/27/2010 FIT-DNA Q 3 years 2014 FIT/FOBT Q 1 year 2014 Flex Sig/CT Colonography Q 5 years 2014 ZOSTER VACCINE (1 of 2) 12/20/2019 INFLUENZA VACCINE (#1) 2024 , 01/30/2019, 04/10/2012 BREAST CANCER SCREENING 07/11/2025 07/12/19, 09/20/2022, 09/12/2022, Additional history exists COLORECTAL SCREENING 06/19/2034 06/19/2024, 11/20/2019, 11/04/2010 Colorectal Cancer Screening 06/19/2034 Medical Devices Implanted Type Area Mechanical Engineering Intern Device Identifier Shelf Expiration Date Model / Serial / Lot Mesh Soft Mesh [id number] - [id number] Implanted: by John Castanon MD (Quantity not on file) Mesh N/A: Abdomen CR [employer] [id number] 01/03/2024 [id number] / / [id number] Procedures Procedure Name Priority Date/Time Associated Diagnosis Comments OVA AND PARASITE SCREEN Routine 01/17/20 3:41 PM CDT Worms in stool GIARDIA & CRYPTOSPORIDIUM ANTIGEN Routine 01/16/2025 3:41 PM CDT Worms in stool MAMMO DIAGNOSTIC BILATERAL W OR WO CAD Routine 07/11/2024 Abnormality of left breast on screening mammogram from Last 3 Months or Most Recently Relevant to Health Maintenance Results * GIARDIA & CRYPTOSPORIDIUM ANTIGEN (01/16/2025 3:41 PM CDT) CRYPTOSPORIDIUM AG SEE NOTE [facility] Comment: CRYPTOSPORIDIUM ANTIGEN, EIA Micro Number: [id number] Test Status: Final Specimen Source: Stool Specimen Quality: Adequate Cryptosporidium: Not Detected Reference Range: Not Detected NOTE: Due to intermittent shedding, one negative sample does not necessarily rule out the presence of a parasitic infection. GIARDIA AG SEE NOTE [facility] Comment: GIARDIA AG, EIA, STOOL Micro Number: [id number] Test Status: Final Specimen Source: Stool Specimen Quality: Adequate Giardia Result 1: Not Detected Reference Range: Not Detected NOTE: Due to intermittent shedding, one negative sample does not necessarily rule out the presence of a parasitic infection. FASTING:UNKNOWN FASTING: UNKNOWN Test Performed at: [facility] [place] [address] [id number] [facility] Stool STOOL SPECIMEN / Unknown 01/16/2025 3:41 PM CDT 01/17/2025 3:28 AM CDT Rocio Ortiz [facility] MICROBIOLOGY - GENERAL ORD ERABLES Final Result [facility] [phone] [place] [address] [address] [id number] * OVA AND PARASITE SCREEN (01/16/2025 3:41 PM CDT) TRICHROME RESULT SEE NOTE [facility] Comment: OVA AND PARASITES, CONC AND PERM SMEAR Micro Number: [id number] Test Status: Final Specimen Source: Stool Specimen Quality: Adequate CONCENTRATION 1: No ova or parasites seen TRICHROME 1: No ova or parasites seen Routine Ova and Parasite exam may not detect some parasites that occasionally cause diarrheal illness. Cryptosporidium Antigen and/or Cyclospora and Isospora Exam may be ordered to detect these parasites. One negative sample does not necessarily rule out the presence of a parasitic infection. For additional information, please refer to https://education.[employer]/faq/BXX971 (This link is being provided for informational/ educational purposes only.) FASTING:UNKNOWN FASTING: UNKNOWN Test Performed at: [place] [address] [place] [address] Carrington Echevarria Stool STOOL SPECIMEN / Unknown 01/16/2025 3:41 PM CDT 01/17/2025 3:28 AM CDT Rocio MASONP MICROBIOLOGY - GENERAL ORD ERABLES Final Result [facility] [phone] [place] [address] [place] [address] * MAMMO DIAGNOSTIC BILATERAL W OR WO CAD (07/11/2024) Anatomical Region Laterality Modality Breast Bilateral Mammography Rocio MASONP MAMMO ORDERABLES Final Res ult from Last 3 Months or Most Recently Relevant to Health Maintenance Insurance MEDICAID [place] * Guarantor: XIN GOMEZ Account Type Relation to Patient Date of Phone Billing Address Personal/Family [address] [place] [address] [employer] Medicaid Care Teams Family Literacy Coordinator Relationship Specialty Start Date End Date Benita Thomas DO [address] [place] [address] PCP - General Family Practice 12/07/10
--- OUTSIDE RECORDS SUMMARY | 2025-02-10 11:36 | XMS_ITS | Encounter Summary ---
Author Organization [facility] Address [address] [place] [address] Care Team Providers Care Comprehensive Ophthalmologist Name Role Phone Benita Thomas DO Primary Care Provider [phone] Encounter Details Date Type Department Care Team (Latest Contact Info) Description 04/27/2000 Outpatient Historical [facility] Medicine [address] [phone] Aster Freed MD [address] [place] [phone] Supervision of other normal (Primary Dx) Social History Tobacco Use Types Packs/Day Years Used Date Smoking Tobacco: Never Assessed Comments Unknown Sex and Gender Information Value Date Recorded Sex Assigned at Not on file 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
[2025-02-10 11:45] VITALS: BP 137/86; PULSE 76; RESP 16; TEMP 36.6; O2SAT 98
--- NOTE | 2025-02-10 11:53 | W.ED.GENADLT ---
HPI - General Adult General: Chief complaint: Needlestick/Injury/Exposure Stated complaint: stuck by a needle on Monday Time Seen by Provider: 02/10/25 11:44 Source: patient Mode of arrival: ambulatory Limitations: no limitations History of Present Illness: Patient is a 54-year-old female presents to ED today with a complaint that she was stuck to her left palm by a dirty needle that she found in her home on Monday-states needle was not hers. Patient states the only other person in her home was her ex-boyfriend and states he has not been there in over a month. Unknown whether he used drugs or not. She does not know his hepatitis/HIV status. She has been cleaning puncture site and no evidence for infection. Last tetanus is unknown. Onset (ago): day(s) Location: left and upper extremity (palm) Severity: mild Relieving factors: none Exacerbating factors: none Associated symptoms: Reports no associated symptoms; Deny malaise Treatments prior to arrival: other (irrigation) Related Data Home Medications ?Medication ?Instructions ?Recorded ?Confirmed calcium carbonate 500 mg PO TID PRN Acid Reflux 08/14/23 07/08/24 cetirizine 10 mg tablet 10 mg PO DAILY 08/14/23 07/08/24 docusate sodium 100 mg capsule 100 mg PO BID PRN Constipation 08/14/23 07/08/24 ibuprofen 800 mg tablet 800 mg PO Q6H PRN Moderate Pain 08/14/23 07/08/24 Held on 06/19/24. (Scale Score 5-6) Instructions: Resume on 06/21/24. ondansetron HCl 4 mg tablet 4 mg PO Q8H PRN Nausea 08/14/23 07/08/24 pravastatin 40 mg tablet 40 mg PO QPM 08/14/23 07/08/24 Previous Rx's ?Medication ?Instructions ?Recorded glycerin (adult) 1 supp AR DAILY PRN constipation 10/20/23 #12 ea ondansetron 8 mg disintegrating 8 mg PO .q6 PRN nausea and 10/20/23 tablet vomiting #14 tabs polyethylene glycol 3350 17 17 g PO DAILY #510 grams 10/20/23 gram/dose oral powder (Miralax) pantoprazole 40 mg tablet,delayed 40 mg PO BID 6 weeks #84 tabs 06/10/24 release (Protonix) polyethylene glycol 3350 17 17 g PO DAILY 1 month #510 grams 06/10/24 gram/dose oral powder (Miralax) Allergies Allergy/AdvReac Type Severity Reaction Status Date / Time kiwi Allergy Unknown Verified 07/08/24 12:35 zucchini (for use with DAM Allergy Unknown Verified 07/08/24 12:35 only) Review of Systems Const: Denies: fever(s), chills, body aches, fatigue or malaise Musc: Denies: extremity pain or extremity swelling Skin/Breast: Denies: erythema Neuro: Denies: numbness in extremities, weakness in extremities or sensory changes PFSH ED PFSH: Social History Smoking and tobacco/nicotine status: never used tobacco/nicotine Alcohol intake: never Substance/Drug Use: never Physical Exam Const: COMMON NORMALS: no acute distress, average body habitus, no limitations, healthy appearing, alert and well nourished Extremity: COMMON NORMALS: full ROM, capillary refill normal and no clubbing, cyanosis or edema GENERAL: Yes normal exam except as noted LEFT UPPER EXTREMITY: Yes hand & digits (small puncture site L palm; no redness/swelling) Neuro: COMMON NORMALS: moves all extremities, no focal motor deficits and no sensory deficits noted SENSORIUM/ORIENTATION: Yes alert Skin: NARRATIVE SKIN EXAM: see above Course Vital Signs: Vital signs: Vital Signs Temperature 97.8 F 02/10/25 11:45 Pulse Rate 76 02/10/25 11:45 Respiratory Rate 16 02/10/25 11:45 Blood Pressure 137/86 02/10/25 11:45 Pulse Oximetry 98 02/10/25 11:45 Oxygen Delivery Me thod Room Air 02/10/25 11:45 MDM - General Adult Medical Decision Making Patient is a 54-year-old female here after a stick injury to her left palm that she sustained 2 to 3 days ago after she inadvertently stuck herself with a found needle in her home. She believes this could be her ex-boyfriend's needle and states he has not been in the home in over a month. Will go ahead and collect hepatitis/HIV labs and these can be repeated through her primary care office in approximately 6 weeks. Her tetanus will be updated. According to PEP hotline there is no indication for HIV prophylaxis based on her exposure of a found needle . Their specific guidelines listed below: Is PEP recommended for a patient who was stuck with a sharp device (e.g. needle, razor) from an unknown source outside of a healthcare setting? This common occurrence falls into the classification of possible exposure to blood/body fluid from an unknown source. A ?found needle? is the classic occurrence. No cases of HIV transmission from a ?found needle? outside of a healthcare setting in the [place] have been documented. Therefore, the PEPline generally discourages PEP in these cases. Even within healthcare settings, ?found needles? have only been implicated in two cases of transmission over the past two decades. Medical Records I reviewed the patient's medical records. Lab Data Laboratory Results Hep Bs Antigen Non-reactive (Nonreactive) 02/10/25 12:40 Hep Bs Antibody < 3.5 (11.5-1000) L 02/10/25 12:40 Hepatitis C Antibody Non-reactive (Nonreactive) 02/10/25 12:40 HIV 1&2 Ab & HIV 1 Ag Non-reactive (Non-Reactiv) 02/10/25 12:40 HIV 1&2 Antibody Non-reactive (Non-Reactiv) 02/10/25 12:40 No radiology studies performed this visit Discharge Plan Discharge Patient Disposition: Home Clinical Impression: Exposure to blood Condition: Stable Prescriptions: No Action pantoprazole [Protonix] 40 mg tablet,delayed release (DR/EC) 40 mg PO BID 42 Days Qty: 84 1RF polyethylene glycol 3350 [Miralax] 17 gram/dose powder 17 g PO DAILY 30 Days Qty: 510 12RF cetirizine 10 mg tablet 10 mg PO DAILY pravastatin 40 mg tablet 40 mg PO QPM ibuprofen 800 mg tablet 800 mg PO Q6H PRN (Reason: Moderate Pain (Scale Score 5-6)) ondansetron HCl 4 mg tablet 4 mg PO Q8H PRN (Reason: Nausea) docusate sodium 100 mg capsule 100 mg PO BID PRN (Reason: Constipation) calcium carbonate 500 mg calcium (1,250 mg) Tablet,Chewable 500 mg PO TID PRN (Reason: Acid Reflux) ondansetron 8 mg tablet,disintegrating 8 mg PO .q6 PRN (Reason: nausea and vomiting) Qty: 14 0RF polyethylene glycol 3350 [Miralax] 17 gram/dose powder 17 g PO DAILY Qty: 510 0RF Rx Instructions: Take 1-2 scoops daily for the next 3 months to keep stools soft glycerin (adult) Suppository 1 supp AR DAILY PRN (Reason: constipation) Qty: 12 0RF Discharge Orders: Discharge ED (Routine); Ordered 02/10/25 Ordered By: Rosalind Cullen Referrals: Benita Thomas DO [Primary Care Provider, Family Practice] Patient Instructions: Needle Stick Injuries (ED), Patient Portal & [facility] Instructions Activity Restrictions/Additional Instructions: As we discussed, we will collect baseline hepatitis/HIV testing today. This will need to be repeated through primary care in approximately 6 weeks. Your tetanus will be updated. Continue to keep puncture site clean with warm soap and water and monitor for signs of infection. Print Language: Finnish Coding Level of Care Code ED Invoicing Machine Operator for Lela Castillo
[2025-02-10] MEDS: tetanus-dipt-pertussis 0.5 mL SDV IM (12:38)
[2025-02-10 13:25] LABS: Hepatitis B Surface Antigen Non-Reactive (Nonreactive)
[2025-02-10 13:26] LABS: HIV 1 & 2 Antigen Non-Reactive (Non-Reactiv)
== END 2025-02-10 12:46 | disposition home or self-care (01) ==
PROVIDERS: Emergency Provider Physician Assistant; PCP Family Medicine
DX: Z77.21 Contact with and (suspected) exposure to potentially hazardous body fluids (principal); S61.432A Puncture wound without foreign body of left hand, initial encounter; W46.1XXA Contact with contaminated hypodermic needle, initial encounter
CPT/HCPCS: 36415; 86706; 86803; 87340; 87806; 90471; 90715; 99283